=== PATIENT | male | born 1965 | race Caucasian/White ===

== ENCOUNTER 2017-02-01 01:14 | Inpatient (IN) | payer OTHER ==
[~2017-02-01] VITALS: Ht 190.5 cm; Wt 95.3 kg
[2017-02-01] VITALS (8 sets, daily range): BP systolic 122–170; BP diastolic 70–98
[~2017-02-01 01:14] MED LIST: BENTYL10 MG PO; EPIPEN 2-PAK1 MG/ML IM; PREDNISONE 20MG20 MG PO; XANAX1 M1 PO; ZOFRAN ODT4 MG SL
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
[2017-02-01 01:38] LABS: ABSOLUTE BASOPHIL COUNT 0 /CUMM (0.0-0.2); ABSOLUTE EOSINOPHIL COUNT 0.2 /CUMM (0.0-0.7); ABSOLUTE GRANULOCYTE CT 4.1 /CUMM (1.4-6.5); ABSOLUTE LYMPH COUNT 2.8 /CUMM (1.2-3.4); ABSOLUTE MONOCYTE COUNT 0.6 /CUMM (0.10-0.60); BASOPHIL % 0.5 % (0.0-2.0); EOSINOPHIL % 2.6 % (0-5); GRANULOCYTE % 52.6 % (42.2-75.2); HEMATOCRIT 41.5 % (42-52); MEAN CORPUSCULAR HGB 33.4 PG (27.0-31.0); MEAN CORPUSCULAR HGB CONC 35.2 G/DL (33.0-37.0); MEAN CORPUSCULAR VOLUME 94.8 FL (80.0-94.0); MEAN PLATELET VOLUME 7.8 FL (7.4-10.4); PLATELET COUNT 186 /CUMM (130-400); RBC DISTRIBUTION WIDTH 13.4 % (11.5-14.5); RED BLOOD CELL CT 4.38 /CUMM (4.70-6.10); WHITE BLOOD CELL COUNT 7.7 /CUMM (4.8-10.8)
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
--- NOTE | 2017-02-01 02:15 | CT SCAN REPORT ---
EXAMINATION: CT HEAD WITHOUT CONTRAST CLINICAL INFORMATION: Syncope. Fall. COMPARISON: None TECHNIQUE: Contiguous axial imaging was performed from the skull base to vertex without intravenous administration of contrast. DLP: 529.16 mGy-cm FINDINGS: There is no evidence of acute intracranial hemorrhage or territorial infarction. No abnormal mass effect or midline shift is seen. Yip to white matter differentiation is well preserved. No extra-axial fluid collections are identified. The ventricles are normal in size. There is no abnormal attenuation within the brain parenchyma. The osseous structures and soft tissues are normal. The mastoid air cells and visualized portions of the paranasal sinuses are well aerated. IMPRESSION: No acute intracranial pathology.
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
--- NOTE | 2017-02-01 03:06 | NUR ---
URINE TRIO OBTAINED AND SENT TO LAB
--- NOTE | 2017-02-01 03:28 | NUR ---
PT'S FAMILY REPORTED TO THIS RN THAT PT HAS NOT TAKEN HIS PRESCRIBED XANAX SINCE MONDAY NIGHT. ROSALINDA INFUSING. AWARE. NO S/S SEIZURE ACTIVITY AT THIS TIME, SEIZURE PADS IN PLACE.
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
--- NOTE | 2017-02-01 03:43 | NUR ---
PT'S AND SON LEAVING AT THIS TIME. PT'S , JANUARY, CAN BE REACHED AT [phone]
--- NOTE | 2017-02-01 03:58 | NUR ---
HOUSE STAFF AT BEDSIDE FOR EVAL
[2017-02-01] MEDS ORDERED: ZOLOFT100 M1 PO (04:49)
[2017-02-01] MEDS ORDERED: MINIPRESS2 M1 PO (04:50)
--- NOTE | 2017-02-01 05:06 | NUR ---
SLEEPING SOUNDLY, AROUSABLE TO VERBAL STIMULI. VSS. NO S/S OF SEIZURE ACTIVITY.
--- NOTE | 2017-02-01 05:12 | NUR ---
REPORT TO VIPUL MONGE ON [facility].
--- NOTE | 2017-02-01 06:09 | Admission Certification ---
Admission Certification Certification Statement - As attending physician, I certify that at the time of - admission, based on clinical presentation, severity of - symptoms, need for further diagnostic testing and - therapeutic interventions, and risk of adverse outcomes - without in-hospital treatment, in my clinical assessment, - this patient requires an acute hospital stay for a minimum - of two nights or longer. I have also considered psychsocial - factors such as support system, advanced age, financial - issues, cognitive issues, and failed out-patient treatments, - past re-admission history, safety of patient, and lack of - compliance as applicable. Specific rationale supporting this admission is: Syncope, seizure.
[2017-02-01] MEDS ORDERED: EPIPEN0.3 MG/0.1 IM (07:46)
[2017-02-01 08:37] LABS: ABSOLUTE BASOPHIL COUNT 0 /CUMM (0.0-0.2); ABSOLUTE EOSINOPHIL COUNT 0.1 /CUMM (0.0-0.7); ABSOLUTE GRANULOCYTE CT 4.9 /CUMM (1.4-6.5); ABSOLUTE LYMPH COUNT 1.9 /CUMM (1.2-3.4); ABSOLUTE MONOCYTE COUNT 0.5 /CUMM (0.10-0.60); BASOPHIL % 0.3 % (0.0-2.0); EOSINOPHIL % 1.1 % (0-5); GRANULOCYTE % 66.4 % (42.2-75.2); MEAN CORPUSCULAR HGB 32.8 PG (27.0-31.0); MEAN CORPUSCULAR HGB CONC 33.5 G/DL (33.0-37.0); MEAN CORPUSCULAR VOLUME 97.8 FL (80.0-94.0); MEAN PLATELET VOLUME 8.2 FL (7.4-10.4); PLATELET COUNT 176 /CUMM (130-400); RBC DISTRIBUTION WIDTH 13.3 % (11.5-14.5); RED BLOOD CELL CT 4.09 /CUMM (4.70-6.10); WHITE BLOOD CELL COUNT 7.3 /CUMM (4.8-10.8)
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
--- NOTE | 2017-02-01 10:30 | NUR ---
CALLED TO PATIENT'S ROOM BY FAMILY. PATIENT HAD GONE TO THE BATHROOM AND CAME BACK TO BED. PATIENT LYING ON LEFT SIDE UNRESPONSIVE. PATIENT APPEARS TO BE HAVING GROSS TREMORS AND JERKY MOVEMENTS. HE IS NOT RESPONDING TO NAME. FAMILY AT BEDSIDE. RAPID RESPONSE CALLED. PATIENT GIVEN IV ATIVAN 2MG. VITAL SIGN ASSESS. BP 126/80 HR 60. FINGERSTICK 126. PATIENT SLOWLY GAINED CONSCIOUSNESS BUT CONTINUES TO HAVE FINE TREMORS. NEUROLOGIST CALLED. PATIENT AWAITS EEG TODAY.
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
--- NOTE | 2017-02-01 12:50 | NUR ---
PATIENT HAD TWO SMALL EPISODES OF UNRESPONSIVENESS LASTING ABOUT 15SEC EACH. DR UNDERWOOD AT BEDSIDE. DR RODRIGUEZ NEUROLOGIST CALLED AND IS ALSO AT PATIENT'S BEDSIDE. FINE TREMORS NOTED. NO NEW INTERVENTIONS ORDERED. AWAITS EEG.
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
[2017-02-02 08:00] VITALS: BP 150/98
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
--- NOTE | 2017-02-02 08:20 | Patient Discharge Instructions ---
Discharge Instructions General Discharge Information You were seen/treated for: ? Syncope Special Instructions: 1. Follow-up with your primary care physician in a week upon discharge 2. Follow-up with neurology for further evaluation of questionable seizures 2. Follow with cardiology for further outpatient stress test workup and a Holter monitoring Diet Recommended Diet: Regular Activity Full Activity/No Limits: No Acute Coronary Syndrome Inclusion Criteria At DC or during hospital stay patient has or had the following: ACS DIAGNOSIS No Discharge Core Measures Meds if any: Prescribed or Continued at Discharge Meds if any: NOT Prescribed or Continued at Discharge Congestive Heart Failure Inclusion Criteria At DC or during hospital stay patient has or had the following: CHF DIAGNOSIS No Discharge Core Measures Meds if any: Prescribed or Continued at Discharge Meds if any: NOT Prescribed or Continued at Discharge Cerebrovascular accident Inclusion Criteria At DC or during hospital stay patient has or had the following: CVA/TIA Diagnosis No Discharge Core Measures Meds if any: Prescribed or Continued at Discharge Meds if any: NOT Prescribed or Continued at Discharge Venous thromboembolism Inclusion Criteria VTE Diagnosis No VTE Type NONE VTE Confirmed by (Test) NONE Discharge Core Measures - Per Current guidelines, there needs to be overlap - treatment for the first 5 days of Warfarin therapy. - If discharged on Warfarin prior to 5 days of - overlap therapy, the patient will need to be - assessed for post discharge needs including - *Post discharge parental anticoagulation - *Warfarin and/or parental anticoagulation education - *Follow up date to check INR post discharge At least 5 days overlap therapy as Inpatient No Meds if any: Prescribed or Continued at Discharge Note: Overlap Therapy is Warfarin and Anticoagulant Meds if any: NOT Prescribed or Continued at Discharge
--- NOTE | 2017-02-02 08:48 | ECHOCARDIOGRAM REPORT ---
DAMIEN TESFAYE Age: 51 : 1965 Gender: M Exam Date: 02/01/2017 11:33 Exam Location: 1 [address] Ht (in): 75 Wt (lb): 210 BSA: 2.25 BP: 132 / 70 Ordering Physician: Leo Camarillo Referring Physician: LEO CAMARILLO MD Technologist: Naveed Grayson Room Number: Indications: PRESYNCOPE/SYNCOPE Rhythm: Sinus Technical Quality: Fair FINDINGS Left Ventricle Left ventricular cavity size at the upper limits of normal. Borderline normal left ventricular ejection fraction estimated at 50-55%. Right Ventricle Normal right ventricular size and function. Right Atrium Normal right atrial size. Left Atrium Mild left atrial dilatation. Mitral Valve Mitral valve thickened. Trace mitral regurgitation. Aortic Valve Trileaflet aortic valve. Focal thickening of the aortic valve cusps. No aortic stenosis. No aortic regurgitation. Tricuspid Valve Tricuspid valve not well visualized, grossly normal. Trace to mild tricuspid regurgitation. Pulmonic Valve Structurally normal pulmonic valve. Pericardium No pericardial effusion. Great Vessels Normal size aortic root and proximal ascending aorta. CONCLUSIONS 1. Minimal aortic sclerosis is present with no valvular stenosis or insufficiency. 2. Mitral leaflet thickening is present with minimal mitral insufficiency and mild left atrial enlargement. 3. A physiologic pericardial effusion is present 4. The left ventricular chamber size is upper normal with an ejection fraction of approximately 55% and no visible resting wall motiion abnormalities. 5. Minimal to mild tricuspid insufficiency is present with no evidence of pulmonary hypertension. Rogelio Hickman M.D. (Electronically Signed) Final Date: 02 February 2017 08:47 MEASUREMENTS (Male / Female) Normal Values 2D ECHO LV Diastolic Diameter PLAX 5.7 cm 4.2 - 5.9 / 3.9 - 5.3 cm LV Systolic Diameter PLAX 4.9 cm 2.1 - 4.0 cm LV Fractional Shortening PLAX 14.0 % 25 - 46 % LV Ejection Fraction 2D Teich 29.5 % IVS Diastolic Thickness 0.7 cm IVS Systolic Thickness 2.0 cm LVPW Diastolic Thickness 0.9 cm LV Relative Wall Thickness 0.3 RV Internal Dim ED PLAX 3.8 cm 1.9 - 3.8 cm LVOT Diameter 2.6 cm Aortic Root Diameter 3.8 cm LA Systolic Diameter LX 2.7 cm 3.0 - 4.0 / 2.7 - 3.8 cm LA Volume 47.0 cm 18 - 58 / 22 - 52 cm DOPPLER AV Peak Velocity 101.0 cm/s AV Peak Gradient 4.1 mmHg AV Mean Velocity 70.7 cm/s AV Mean Gradient 2.0 mmHg AV Velocity Time Integral 20.1 cm LVOT Peak Velocity 88.7 cm/s LVOT Peak Gradient 3.1 mmHg LVOT Mean Velocity 56.9 cm/s LVOT Mean Gradient 2.0 mmHg LVOT Velocity Time Integral 17.7 cm LVOT Stroke Volume 94.0 cm AV Area Cont Eq vti 4.7 cm AV Area Cont Eq pk 4.7 cm MV Peak Velocity 60.4 cm/s MV Peak Gradient 1.5 mmHg MV Mean Velocity 34.6 cm/s MV Mean Gradient 1.0 mmHg Mitral E Point Velocity 64.2 cm/s Mitral A Point Velocity 47.4 cm/s Mitral E to A Ratio 1.4 MV PHT Velocity 59.2 cm/s MV Deceleration [place] 116.0 cm/s MV Pressure Half Time 153.1 ms MV Area PHT 1.4 cm MV Deceleration Time 345.0 ms TR Peak Velocity 262.0 cm/s TR Peak Gradient 27.5 mmHg Right Atrial Pressure 5.0 mmHg Pulmonary Artery Systolic Pressu 32.5 mmHg Right Ventricular Systolic Press 32.5 mmHg PV Peak Velocity 112.0 cm/s PV Peak Gradient 5.0 mmHg PV Mean Velocity 84.6 cm/s PV Mean Gradient 3.0 mmHg PV Velocity Time Integral 24.4 cm LV E' Lateral Velocity 7.9 cm/s Mitral E to LV E' Lateral Ratio 8.1 LV E' Septal Velocity 8.1 cm/s Mitral E to LV E' Septal Ratio 7.9
[2017-02-02 09:00] VITALS: BP 150/98
[2017-02-02 10:00] VITALS: BP 150/98
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
[2017-02-02] MEDS ORDERED: ATIVAN1 M1 PO (13:20)
[2017-02-02] MEDS ORDERED: KEPPRA500 M1 PO ×2 (13:21→15:22)
--- NOTE | 2017-02-02 14:26 | ELECTROENCEPHALOGRAM REPORT ---
Electroencephalogram Report Electroencephalogram Results Date of service: 02/02/17 Attending MD: ROMERO GUTIERREZ MD Cafeteria Monitor: Maya Laguerre EEG Number: [id number] Test Utilizes: 10-20 system, 21 lead 18 channel digital recording Pertinent Hx/Physical/Neuro Findings/Clin Diagnosis: Tremor. Rule out seizure Inpatient Medications: Current Medications Sig/Dea Start time Last Medication Dose Route Stop Time Status Admin Acetaminophen 500 MG Q6P PRN / 0415 AC PO Heparin Sodium 5,000 UNIT Q8 02/01 0600 AC 02/01 (Porcine) SC 1433 Ibuprofen 400 MG Q6P PRN / 0415 AC 04/ PO 1315 Levetiracetam 500 MG BID 02/01 1000 AC / PO 0941 Lorazepam 2 MG Q8 02/02 1400 AC / PO 1315 Lorazepam 2 MG Q6 / 1200 DC / PO 0633 Lorazepam 0 Q1P PRN 02/01 1045 AC 02/01 IV 1042 Nicotine 14 MG DAILY 02/01 1000 AC 02/02 TOP 0941 Oxycodone/ 2 TAB Q6P PRN / 0415 AC / Acetaminophen PO 0822 Patient Medication 1 ED .STK-MED ONE 02/02 1345 DC Teaching ED 02/02 1346 Interpretation: The predominant posterior background rhythm consists of low voltage 10-12 cps activity. Large amounts of lower voltage 18-22 cps activity is seen throughout the tracing, accentuated anteriorly. With drowsiness, there is generalized slowing of the background rhythm. No focal, paroxysmal or lateralizing features were identified. With episodes of tremor or twitching, as reported by the pathology technician, there is no associated epileptiform activity noted. Hyperventilation was deferred. Photic stimulation induced no abnormalities. Impression: This was a low-voltage tracing which was otherwise within normal limits in the states of wakefulness, drowsiness and light sleep. There are no epileptiform or paroxysmal features
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
[2017-02-02] MEDS ORDERED: PERCOCET 5-3251 EACH PO (15:09)
--- NOTE | 2017-02-02 15:47 | Event Note ---
Event Note Event Note: Patient will be discharged on Keppra 500 twice a day. Even though EEG is negative it is not confirmatory that he did not have a seizure. As per attending's recommendation we will discharge him on Keppra and he should follow- up with neurologist as an outpatient.
== END 2017-02-02 15:32 | DRG 101 ==
LOC: ENRESERVTM → ENRESERVDT → ERH 01:14 → ENPENDDIS 03:05 → 1NO 03:05 → ERHI 03:05 → 1NO 05:36
PROVIDERS: Emergency Medicine; Internal Medicine Hematology & Oncology; ADMIT Student in an Organized Health Care Education/Training Program
DX: R56.9 Unspecified convulsions (principal); E87.1 Hypo-osmolality and hyponatremia; F13.20 Sedative, hypnotic or anxiolytic dependence, uncomplicated; I10 Essential (primary) hypertension; R55 Syncope and collapse; F41.9 Anxiety disorder, unspecified; F32.9 Major depressive disorder, single episode, unspecified; F17.200 Nicotine dependence, unspecified, uncomplicated; F10.20 Alcohol dependence, uncomplicated
CPT/HCPCS: 1NP; 36415; 80307; 82436; 93005; 93010; 93306; 94799; 95816; 96374; 96375; 99232; G0480; J1644; J1953

== ENCOUNTER 2017-05-02 15:55 | Inpatient (IN) | payer OTHER ==
[~2017-05-02] VITALS: Ht 190.5 cm; Wt 102.1 kg
[~2017-05-02 15:55] MED LIST changes: +ATIVAN1 M1 PO; +EPIPEN0.3 MG/0.1 IM; +KEPPRA500 M1 PO; +MINIPRESS2 M1 PO; +PERCOCET 5-3251 EACH PO; +ZOLOFT100 M1 PO
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
--- NOTE | 2017-05-02 15:55 | NUR ---
SECURITY AT BEDSIDE FOR WANDING PT CHANGED INTO BLUE SCRUBS
--- NOTE | 2017-05-02 16:00 | NUR ---
RACHEL GARDNER AT BEDSIDE FOR EVAL
--- NOTE | 2017-05-02 16:22 | ED PSYCHIATRIC COMPLAINT ---
History of Present Illness General Chief Complaint: Psychiatric Related Complaint Stated Complaint: BIBA FOR SI/ETOH Source: patient Exam Limitations: intoxication Allergies Coded Allergies: bee venom protein (honey bee) (Severe, ANAPHYLAXIS 02/01/17) Reconcile Medications Clonazepam 1 MG TABLET 1 TAB PO BIDP PRN PTSD (Reported) Epinephrine (Epipen) 0.3 MG/0.3 ML AUTO.INJCT 1 INJ IM DAILY AC PRN BEE STINGS (Reported) Prazosin HCl 2 MG CAPSULE 1 CAP PO QPM PTSD (Reported) Sertraline HCl (Zoloft) 100 MG TABLET 1 TAB PO DAILY PTSD (Reported) Triage Note: PT SIGRID ON PEER FROM HOME FOR +SI AND ETOH. PER EMS, PT CUT HIS LEFT WRIST WITH AN UNKNOWN OBJECT AND BLEEDING CONTROLLED WITH PRESSURE DRESSING EN ROUTE. PT ARRIVED HANDCUFFED WITH 2 POLICE OFFICERS ACCOMPANYING EMS. PT DENIES SI/HI. PT REPORTS 2 VODKA NIPS TODAY AND MARIJUANA USE Triage Nurses Notes Reviewed? yes Unable To Obtain Hx Due To: patient intoxication HPI: 51-year-old male SIGRID presents to emergency room with laceration to left anterior wrist. The patient states that he is unsure of how he cut wound to left wrist. He had 2 nips of liquor and smokes marijuana. He also smokes about 1 pack of cigarettes per day. Complaining of left ankle pain, he is unsure of how he hurt his ankle. He is able to ambulate on his own. He denies recent illness, chest pain abdominal pain, dyspnea, numbness, tingling. He denies SI, HI,AH/VH. EMS reports +SI. Patient states he has a history of PTSD and see his psychiatrist across the street. (JJ SULLIVAN,LISA) Vital Signs & Intake/Output Vital Signs & Intake/Output Vital Signs Date Time Temp Pulse Resp B/P B/P Pulse O2 O2 Flow FiO2 Mean Ox Delivery Rate 05/07 1530 70 130/70 05/07 1512 70 130/70 05/07 1225 59 117/66 05/07 1219 59 117/66 05/07 0836 63 125/75 05/07 0832 97.3 63 125/75 05/06 2155 98.5 62 20 149/92 05/06 2059 98.5 62 149/92 05/06 2056 98.5 62 149/92 05/06 1626 61 146/72 05/06 1626 76 126/70 05/06 1625 96.9 60 135/73 Past History Travel History Traveled to [place] past 21 day No Medical History Any Pertinent Medical History? see below for history Neurological: NONE EENT: NONE Cardiovascular: hypertension, HIGH CHOLESTEROL Respiratory: NONE Gastrointestinal: NONE Hepatic: NONE Renal: NONE Musculoskeletal: NONE Psychiatric: PTSD history of substance abuse, in partial remission Endocrine: NONE Blood Disorders: NONE Cancer(s): NONE BILLING ASSOCIATE/Reproductive: NONE History of MRSA: No History of VRE: No History of CDIFF: No Surgical History Surgical History: non-contributory Psychosocial History Who do you live with Significant Other Services at Home None What is your primary language Namibian Tobacco Use: Refused to answer ETOH Use: occasional use Illicit Drug Use: marijuana Family History Family History, If Any: SISTER FH: HTN (hypertension) MOTHER FH: HTN (hypertension) FH: myocardial infarction Hx Contributory? No (LISA GARDNER PA-C) Review of Systems Review of Systems Constitutional: Reports: no symptoms. EENTM: Reports: no symptoms. Respiratory: Reports: no symptoms. Cardiovascular: Reports: no symptoms. GI: Reports: no symptoms. Genitourinary: Reports: no symptoms. Musculoskeletal: Reports: see HPI. Skin: Reports: see HPI. Neurological/Psychological: Reports: see HPI. Hematologic/Endocrine: Reports: no symptoms. Immunologic/Allergic: Reports: no symptoms. All Other Systems: Reviewed and Negative (LISA GARDNER PA-C) Physical Exam Physical Exam General Appearance: well developed/nourished, alert, awake, mild distress, intoxicated Head: atraumatic, normal appearance Eyes: Bilateral: normal appearance, EOMI. Ears, Nose, Throat: hearing grossly normal Neck: normal inspection, supple, full range of motion Respiratory: no respiratory distress Cardiovascular: regular rate/rhythm Extremities: normal range of motion, mild swelling of lateral left ankle, FROM, mild tenderness of lateral ankle, patient walking normally without limp, 4cm laeration to left anterior wrist Neurological/Psychiatric: awake, agitated (mildly), alert Appearance/Memory/Insight: denies illness, impaired insight Behavoir/Eye Contact/Speech: belligerent (at times), uncooperative (at times), refused to answer (some of questions) Thoughts/Hallucinations: no apparent hallucination Skin: 4 cm laceration to left anterior wrist SAD PERSONS Done? unobtained due to conditi (LISA GARDNER PA-C) Progress Differential Diagnosis: drug intoxication, drug overdose, drug withdrawal, encephalitis, hypoglycemia Hand-Off Endorsed To: ALEXANDER RODRIGUEZ MD Endorsed Time: 209 Pending: other (crisis eval) Comments: Pending crisis eval (LISA GARDNER PA-C) Hand-Off Endorsed To: HIEU TORRES,CAROLA Snell Endorsed Time: 699 Pending: consult (CRISIS) (ALEXANDER RODRIGUEZ MD) Plan of Care: Orders Procedure Date/time Status MISSING MEDICATION FORM 05/06 UNK Active Current Medications Sig/Dea Start time Last Medication Dose Stop Time Status Admin Trazodone HCl 100 MG AT BEDTIME 05/07 2200 AC (Desyrel) Sertraline HCl 150 MG 1000 05/05 1000 AC 05/07 (Zoloft) 0815 Prazosin HCl 5 MG 05/04 AC 05/06 (Minipress 5 MG) 2155 Nicotine 14 MG 1000 05/04 114 AC 05/07 (Nicotine Cq) 0815 Nicotine 2 MG Q2 HRS NEEDED PRN 05/04 1145 AC 05/06 (Nicotine) 1949 Clonazepam 1 MG AT BEDTIME NEED.. 05/04 1115 AC 05/06 (Klonopin 1MG Tab) 05/11 1114 2154 Multivitamins 1 TAB 0805/04 0800 AC 05/07 (Theragran Vitamins) 0815 Ibuprofen 800 MG Q6P PRN 05/03 2030 AC 05/07 (Motrin) 1344 Gabapentin 300 MG Q4P PRN 05/03 1845 AC 05/07 (Neurontin) 1344 Lorazepam 1 MG Q2P PRN 05/03 1845 AC (Ativan) Lorazepam 1.5 MG Q2P PRN 05/03 1845 AC (Ativan) Quetiapine Fumarate 25 MG Q4P PRN 05/03 1845 AC 05/03 (Seroquel) 2230 Laceration closed with suturing, patient tolerated procedure well. Patient was sedated with Benadryl, Haldol, Ativan prior to suturing as he was urinating on cooperatively. Patient initially stated that he was refusing all lab work however after further discussion that he would not be able to leave given his prior +SI he consented to blood work and urinalysis. Labs reveal cannabis abuse with mild macrocytic anemia. Patient seen sleeping, in no acute distress, noncombative. 2:09 - patient signed out to Dr. Rodriguez pending crisis eval/placement (LISA GARDNER PA-C) Comments: PEC has been signed and the patient will be admitted to Inpatient Psychiatry. (HIEU TORRES,CAROLA Snell) Departure Departure Disposition: STILL A PATIENT Condition: Stable Referrals: MARGARET TORRES,OLIVE Snell (PCP/Family) Departure Forms: Customer Survey General Discharge Information (LISA GARDNER PA-C) PA/PROOF LOAD MECHANIC Co-Sign Statement Statement: ED Attending supervision documentation- [] I saw and evaluated the patient. I have also reviewed all the pertinent lab results and diagnostic results. I agree with the findings and the plan of care as documented in the PA's/PROOF LOAD MECHANIC's documentation. [X] I have reviewed the ED Record and agree with the PA's/PROOF LOAD MECHANIC's documentation. [] Additions or exceptions (if any) to the PAs/PROOF LOAD MECHANIC's note and plan are summarized below: [] (BRENDA TORRES,ALEXANDER) Departure Clinical Impression Primary Impression: Suicidal ideation Secondary Impressions: Alcohol intoxication Qualifiers: Complication of substance-induced condition: uncomplicated Qualified Code: F10.920 - Alcohol use, unspecified with intoxication, uncomplicated Closed fracture of left distal fibula Qualifiers: Encounter type: initial encounter Fracture morphology: unspecified fracture morphology Qualified Code: S82.832A - Other fracture of upper and lower end of left fibula, initial encounter for closed fracture Psych Admission Note Psychiatric Admission: I have seen and evaluated DAMIEN TESFAYE. I have also reviewed all the pertinent lab results and diagnostic results. DAMIEN TESFAYE will be admitted to our inpatient Psychiatric unit for treatment and care. PA/PROOF LOAD MECHANIC Co-Sign Statement Statement: ED Attending supervision documentation- [X] I saw and evaluated the patient. I have also reviewed all the pertinent lab results and diagnostic results. I agree with the findings and the plan of care as documented in the PA's/PROOF LOAD MECHANIC's documentation. [X] I have reviewed the ED Record and agree with the PA's/PROOF LOAD MECHANIC's documentation. [] Additions or exceptions (if any) to the PAs/PROOF LOAD MECHANIC's note and plan are summarized below: [] (HIEU TORRES,CAROLA Snell) Procedures Laceration/Wound Repair Laceration/Wound Repair: Wound Location: LEFT ANTERIOR WRIST Wound's Depth, Shape: linear, superficial Wound Length (cm): 5 Wound Explored: irrigated extensively Irrigated w/ Saline (ccs): 500 Betadine Prep? Yes Anesthesia: lidocaine w/ epi Volume Anesthetic (ccs): 7 Wound Repaired With: sutures Suture Size/Type: 4:0, proline Number of Sutures: 12 Layer Closure? No Sterile Dressing Applied: Yes Progress: Patient tolerated procedure well (LISA GARDNER PA-C) Splinting Location: LEFT ANKLE Manual Alignment Performed: No Hand-Made Type: orthoglass Splint: posterior walking Splint Applied By: splint applied by me Pre-Proc Neuro Vasc Exam: normal Post-Proc Neuro Vasc Exam: normal (HIEU TORRES,CAROLA Snell)
--- NOTE | 2017-05-02 16:30 | NUR ---
MED REC COMPLETED WITH PT. PT RIPPED 4X4 OFF LEFT WRIST AND SAID "WHEN ARE THEY GOING TO SEW ME UP SO I CAN GET OUT OF HERE?" SITTER AT DOOR.
[2017-05-02] MEDS ORDERED: CLONAZEPAM1 M2 PO (16:32)
[2017-05-02] MEDS ORDERED: PRAZOSIN HCL2 M1 PO (16:33)
--- NOTE | 2017-05-02 16:45 | NUR ---
PT MEDICATED WITH ATIVAN 2MG IM, HALDOL 5MG IM AND HALDOL 5MG IM TO LEFT DELTOID. PT UNDER GOOD BEHAVIORAL CONTROL. SITTER AT DOOR. SECURITY IN AREA.
--- NOTE | 2017-05-02 17:10 | NUR ---
RACHEL GARDNER AND MED STUDENT AT BEDSIDE FOR SUTURES TO PT'S LEFT WRIST
--- NOTE | 2017-05-02 17:54 | NUR ---
LABS DRAWN AND SENT (SST,LAV) PT REFUSING TO GIVE URINE SPECIMEN AT THIS TIME. SITTER AT DOOR.
--- NOTE | 2017-05-02 17:57 | NUR ---
PT PROVIDED URINE SPECIMEN AND DORETHA SANCHEZ SENT URINE TRIO TO LAB
[2017-05-02 18:03] LABS: ABSOLUTE BASOPHIL COUNT 0 /CUMM (0.0-0.2); ABSOLUTE EOSINOPHIL COUNT 0.1 /CUMM (0.0-0.7); ABSOLUTE GRANULOCYTE CT 6.4 /CUMM (1.4-6.5); ABSOLUTE LYMPH COUNT 1.6 /CUMM (1.2-3.4); ABSOLUTE MONOCYTE COUNT 0.5 /CUMM (0.10-0.60); BASOPHIL % 0.4 % (0.0-2.0); EOSINOPHIL % 1.1 % (0-5); GRANULOCYTE % 74.4 % (42.2-75.2); HEMATOCRIT 41.1 % (42-52); MEAN CORPUSCULAR HGB 33.8 PG (27.0-31.0); MEAN CORPUSCULAR HGB CONC 33.8 G/DL (33.0-37.0); MEAN CORPUSCULAR VOLUME 100.1 FL (80.0-94.0); MEAN PLATELET VOLUME 7.9 FL (7.4-10.4); PLATELET COUNT 202 /CUMM (130-400); RED BLOOD CELL CT 4.11 /CUMM (4.70-6.10); WHITE BLOOD CELL COUNT 8.7 /CUMM (4.8-10.8)
--- NOTE | 2017-05-02 18:12 | NUR ---
PT AMBULATORY TO TELEPHONE TO CALL FAMILY. PT ASKED THIS RN TO SPEAK WITH HIS SON, WHO ASKED IF HE COULD VISIT. THIS RN TOLD HIM YES, AND PT'S SON ASKED IF PT HAD CALMED DOWN AND WAS COOPERATING. PT RETURNED TO ROOM 14, AWAITING SON'S VISIT AND CRISIS EVAL. SITTER AT DOOR.
--- NOTE | 2017-05-02 19:04 | NUR ---
PT'S SON MEETING WITH CRISIS. PT AWAKE AND REQUESTING WATER. PT PROVIDED WITH BOXED LUNCH. SITTER AT DOOR.
--- NOTE | 2017-05-02 19:20 | NUR ---
ZOEY (SON) CAN BE CONTACTED UPON D/C
--- NOTE | 2017-05-02 19:20 | NUR ---
PT MAKING +HI STATEMENTS TO SON "BETTER MY WRISTS THAN YOUR MOTHER'S THROAT I BET SHE'S AT HOME RIGHT NOW TEXTING ON HER PHONE LIKE SHE ALWAYS DOES"
--- NOTE | 2017-05-02 19:35 | NUR ---
PT PROVIDED 2ND URINE SPECIMEN, THIS RN WALKED URINE TRIO TO LAB, TUBE SYSTEM IS DOWN. SITTER AT DOOR.
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
--- NOTE | 2017-05-02 20:44 | NUR ---
PT ASLEEP AT THIS TIME. RESPIRATIONS EQUALA ND UNLABORED. SITTER AT DOOR.
--- NOTE | 2017-05-02 22:35 | NUR ---
PT ASLEEP AT THIS TIME. PT'S RESPIRATIONS ARE EQUAL AND UNLABORED. SITTER AT DOOR.
--- NOTE | 2017-05-02 23:30 | NUR ---
ASSUMED CARE OF PT, PT CURRENTLY IN BED SLEEPING, CHEST RISE AND FALL NOTED, NON LABORED BREATHING NOTED.
--- NOTE | 2017-05-03 03:50 | NUR ---
PT REMAINS ASLEEP AT THIS TIME W/ RR NOTED. SITTER REMAINS IN ATTENDANCE
--- NOTE | 2017-05-03 05:22 | NUR ---
PT REMAINS ASLEEP AT THIS TIME W/RR NOTED, NAD. SITTER REMAINS IN ATTENDANCE
--- NOTE | 2017-05-03 08:19 | NUR ---
PT AWAKE, ATE ALL HIS BREAKFAST. APPEARS IN GOOD SPIRIT AND DENIES FEELING DEPRESSED AT THIS TIME. DENIES HAVING THOUGHTS OF HURTING HIMSELF. I ASKED HIM ABOUT THE DRESSING ON HIS LEFT WRIST AND HE SAID "THAT WAS NOTHING, I DIDN'T MEAN TO DO IT" . PT'S LEFT ANKLE IS SWOLLEN, ICE WAS APPLIED. RUDY GOLDEN IS MONITORING PATIENT
--- NOTE | 2017-05-03 09:16 | ED PSYCH CRISIS CONSULTATION ---
Crisis Consult Basic Assessment Date of Consult: 05/03/17 Responsible Person/Accompanied By: SonSean Insurance Authorization: Insurance #1: Insurance name: [employer] Phone number: Policy number: [id number] Group number: [id number] Authorization number: ED Provider: Patient's ED Provider: LISA GARDNER PA-C Primary Care Physician: Patient's PCP: OLIVE ROBLES MD PCP's Current Psychiatrist: Cooper Soriano MD Chief Complaint: Psychiatric Related Complaint Patient's Quote: "I don't know why I cut myself. I don't remember threatening my ." Present Illness: 51 M SIGRID from home on a PEER 05/02/17 @ 5885, after he was observed by his son, Jr. Sean, cutting his left forearm, who called 911. The patient's mother- in-law came to the house and had an argument with the patient, who left the house to go drinking. He returned home after his came home, and she told him to go upstairs to bed. She had been telling him that she wanted to file for divorce if he did not stop drinking. The patient was agitated in the ED, and medicated with Ativan 2 mg IM/Haldol 5 mg IM/Benadryl 50 mg IM, and remained in good behavioral control. The patient made a statement to the son, "Better my wrists than your mother's throat . . ." The patient has been in treatment for PTSD, Alcohol use d/o, cannabis use d/o and nicotine use d/o with Dr. Cooper Soriano, psychiatrist at [facility]. His last visit was 03/15/17; next schedule visit is three months from that date in May. 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 He reports that the family is experiencing financial stresses, and that some of the bills are not getting paid. He is concerned about losing his job. He live at home with his of 25 years, January, , and his son, Sean Coyle. Labs: Notable for urine cannabis 77.30H and serum alcohol 200H. Also, sodium 147H, chloride 109H, glucose 106. Also, RBC 4.11L, Hbg 13.9L, Hct 41.1L. Please see the lab report below. Current psychotropic medications: By Dr. Soriano Clonazepam 1 mg Take 2 tablets PO at bedtime, last filled 04/17/17 #60/30 days Prazosin 2 mg PO at bedtime, last filled 03/16/17 #60/30 days Sertraline 100 mg PO every morning, last filled 03/15/17 #30/30 days The patient reports he has been taking his medication. He reports 2-4 nips after work, and does not drink on the weekends. He reports daily cannabis use. Collateral yesterday from the patient's son, Sean. The son remains worried about the patient and hopes he is admitted to psychiatry. Please see the separate Crisis collateral note. Collateral from the patient's , January: She reports that she had been discussing divorce with the patient if he did not stop drinking. She denies concern for her safety, her children's safety, nor the patient's safety if he were to come home. She believes that he would not have cut himself or made the statement, if he were not drinking. She reports that he has been taking the Klonopin at work and then coming home and drinking. She does not believe that he was abusing Xanax when he was on that previously. Who Do You Live With? Significant Other Family/Informants Interviewed: Son, Jr. Sean, , January Allergies - Coded Allergies: bee venom protein (honey bee) (Severe, ANAPHYLAXIS 02/01/17) Current Medications - Scheduled Medications Prazosin HCl 2 MG CAPSULE 1 CAP PO QPM PTSD #60 (Reported) Entered as Reported by KERRI VOGEL on 05/02/17 1633 Sertraline HCl (Zoloft) 100 MG TABLET 1 TAB PO DAILY PTSD 30 Days (Reported) Entered as Reported by LEO CAMARILLO on 02/01/17 0449 Scheduled PRN Medications Clonazepam 1 MG TABLET 1 TAB PO BIDP PRN PTSD #60 (Reported) Entered as Reported by KERRI VOGEL on 05/02/17 1632 Epinephrine (Epipen) 0.3 MG/0.3 ML AUTO.INJCT 1 INJ IM DAILY AC PRN BEE STINGS (Reported) Entered as Reported by EDWIGE RHOADES on 02/01/17 0746 Laboratory Results: Laboratory Tests 05/02/17 1931: Urine Opiates Screen < 100.00, Methadone Screen < 40, Barbiturate Screen < 60, Ur Phencyclidine Scrn < 6.00, Amphetamines Screen < 100, U Benzodiazepines Scrn 183, Urine Cocaine Screen < 50, Urine Cannabis Screen 77.30 H 05/02/17 1750: Anion Gap 15, Estimated GFR > 60, BUN/Creatinine Ratio 19.0, Glucose 106 H, Calcium 9.4, Total Bilirubin 0.3, AST 32, ALT 36, Alkaline Phosphatase 68, Total Protein 6.6, Albumin 4.4, Globulin 2.2, Albumin/Globulin Ratio 2.0, CBC w Diff NO MAN DIFF REQ, RBC 4.11 L, MCV 100.1 H, MCH 33.8 H, RDW 14.0, MPV 7.9, Gran % 74.4, Lymphocytes % 18.8 L, Monocytes % 5.3, Eosinophils % 1.1, Basophils % 0.4, Absolute Granulocytes 6.4, Absolute Lymphocytes 1.6, Absolute Monocytes 0.5 , Absolute Eosinophils 0.1, Absolute Basophils 0, PUBS MCHC 33.8, Serum Alcohol 200.0 Past History Past Medical History Neurological: NONE EENT: NONE Cardiovascular: hypertension, HIGH CHOLESTEROL Respiratory: NONE Gastrointestinal: NONE Hepatic: NONE Renal: NONE Musculoskeletal: NONE Psychiatric: PTSD history of substance abuse, in partial remission Endocrine: NONE Blood Disorders: NONE Cancer(s): NONE CLOTH COLORS EXAMINER/Reproductive: NONE Past Surgical History Surgical History: non-contributory Psychosocial History Strengths/Capabilities: 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 He is motivated towards treatment. Physical Limitations (Interventions): 05/03/17 0950: Nursing reports that XR of left ankle shows fracture, and the patient will likely require a boot. Imaging report not available yet. 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 How much used/taken 4 nips How often 2-4 nips daily Substance Abuse Treatment Substance Abuse Treatment Past Substance Abuse [place] No Inpatient Treatment No Outpatient Treatment No Current Mental Status Mental Status Orientation: Person, Place, Situation Affect: Anxious, Constricted Speech: Evasive Neuro-vegetative: Sleep Disturbance Appearance Appearance- Dress/Hygiene: Well-groomed Behaviors Thought Process: Thought Blocking Thought Content: Thought Blocking Memory: Short term memory Insight: Poor SI/HI Risk Assessment Past Suicidal Ideation/Attempts No (Denies) Current Suicidal Ideation/Att No Past Homicidal Ideation/Att: Yes Current Homicidal Ideation/Attempts No Degree of Intent: Self Destructive/No Danger To: Others, Self Gravely Disabled: Lack of Insight, Poor Impulse Control, Poor Judgment Risk Factors: access to lethal means, history of Violence, history of suicide atmpts, substance abuse, poor impulse control, male Lethality Ratin PTSD Checklist PTSD Done? patient declined ED Management Sitter: Yes Restraints: No DSM5/PS Stressors/Medical Prob Diagnosis' (DSM 5, Stressors, Medical): F43.10 PTSD F10.10 Alcohol use disorder F12.10 Cannabis use disorder Tobacco use disorder Current GAF: 20 Departure Disposition Psych Medical Clearance Date: 05/03/17 Medically Cleared at: 0825 Time Started: 08 Time Ended: 807 Date Disposition Established: 05/03/17 Time Disposition Established: 1245 Plan for Disposition - Modality: Inpatient Psychiatry Facility: [facility] Follow-up Appt Date: 05/03/17 Rationale for Disposition: The patient had a suicide attempt by cutting his arm, fractured his left ankle, made an indirect threat to his through his son, and has been using alcohol while on prescribed clonazepam, although his psychiatrist thought his alcohol use was in remission. We feel that he is gravely disabled by his alcohol use at this time, which resulted in his suicide attempt. Type of IP Admission: [facility] Referrals MARGARET TORRES,OLIVE Snell (PCP/Family)
--- NOTE | 2017-05-03 10:09 | RADIOLOGY REPORT ---
EXAMINATION: XR ANKLE, LEFT CLINICAL INFORMATION: Pain and swelling COMPARISON: None TECHNIQUE: AP, lateral, and mortise views of the left ankle. FINDINGS: Oblique fracture distal fibula. Soft tissue swelling laterally. Cannot exclude some mild widening of the medial mortise. IMPRESSION: Oblique fracture distal fibula. Mildly distracted.
--- NOTE | 2017-05-03 11:27 | NUR ---
RECEIVED REPORT ON PT AND NOTED EATING AND DENIES ANY COMPLAINTS AT PRESENT. PER COMMUNICATIONS SENIOR ASSOCIATE HE NEEDS TO REDICUSS PT'S STATUS WITH DR. CALVERT AND WILL INFORM OF POC. PT IS CALM AND COOPERATIVE AT PRESENT
--- NOTE | 2017-05-03 12:15 | NUR ---
PT OKAY'D FOR AND SON TO COME BACK AND VISIT
--- NOTE | 2017-05-03 13:42 | Event Note ---
Event Note Event Note: 05/03/17 1335: We had made an appointment for an IOP intake at [facility] in [place] before we decided to admit the patient to inpatient psychiatry. The appointment is set for 05/11/17 at 2:30PM at [address] [place] [address] in [place], [place]. I have called and left a message for Eneida to advise her of the [facility] admission, and to ask if we should cancel that appointment; expect a return call. The patient was originally referred to [facility], since he is on prescribed benzodiazepines.
--- NOTE | 2017-05-03 14:28 | IP CRISIS DIAG ASSESS PSYCH ---
Diagnostic Assessment Basic Assessment Insurance Authorization: Insurance #1: Insurance name: [employer] Phone number: Policy number: [id number] Group number: [id number] Authorization number: [id number] for 3 days starting 05/03/17. CM will call for review on 05/05/17, the last covered day. Primary Care Physician: Patient's PCP: OLIVE ROBLES MD PCP's Patient's Quote: "I don't know why I cut myself. I don't remember threatening my ." Present Illness: 51 M SIGRID from home on a PEER 05/02/17 @ 5779, after he was observed by his son, Jr. Sean, cutting his left forearm, who called 911. The patient's mother- in-law came to the house and had an argument with the patient, who left the house to go drinking. He returned home after his came home, and she told him to go upstairs to bed. She had been telling him that she wanted to file for divorce if he did not stop drinking. The patient was agitated in the ED, and medicated with Ativan 2 mg IM/Haldol 5 mg IM/Benadryl 50 mg IM, and remained in good behavioral control. The patient made a statement to the son, "Better my wrists than your mother's throat . . ." The patient slipped on the blood in his bedroom after cutting his left arm, and fractured his left ankle. He is currently in a posterior splint, which is non weight-bearing, and cannot get wet. He will need a cast for walking. The patient has been in treatment for PTSD, Alcohol use d/o, cannabis use d/o and nicotine use d/o with Dr. Cooper Soriano, psychiatrist at [facility]. His last visit was 03/15/17; next schedule visit is three months from that date in May. 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 He reports that the family is experiencing financial stresses, and that some of the bills are not getting paid. He is concerned about losing his job. He live at home with his of 25 years, January,[phone], and his son, Sean Coyle. Labs: Notable for urine cannabis 77.30H and serum alcohol 200H. Also, sodium 147H, chloride 109H, glucose 106. Also, RBC 4.11L, Hbg 13.9L, Hct 41.1L. Please see the lab report below. Current psychotropic medications: By Dr. Soriano Clonazepam 1 mg Take 2 tablets PO at bedtime, last filled 04/17/17 #60/30 days Prazosin 2 mg PO at bedtime, last filled 03/16/17 #60/30 days Sertraline 100 mg PO every morning, last filled 03/15/17 #30/30 days The patient reports he has been taking his medication. He reports 2-4 nips after work, and does not drink on the weekends. He reports daily cannabis use. Collateral yesterday from the patient's son, Sean. The son remains worried about the patient and hopes he is admitted to psychiatry. Please see the separate Crisis collateral note. Collateral from the patient's , January: She reports that she had been discussing divorce with the patient if he did not stop drinking. She denies concern for her safety, her children's safety, nor the patient's safety if he were to come home. She believes that he would not have cut himself or made the statement, if he were not drinking. She reports that he has been taking the Klonopin at work and then coming home and drinking. She does not believe that he was abusing Xanax when he was on that previously. Patient's Address: [address] [place] [address] Other Who Do You Live With? Spouse Feel Safe Where You Live? Yes Feel Safe in Your Relationship Yes Marital Status: Do You Have Children? Yes Ages? Patient unwilling to answ Primary Language? Martiniquais Family/Informants Interviewed: SonSean Jr. , January Allergies - Coded Allergies: bee venom protein (honey bee) (Severe, ANAPHYLAXIS 02/01/17) Current Medications - Scheduled Medications Prazosin HCl 2 MG CAPSULE 1 CAP PO QPM PTSD #60 (Reported) Entered as Reported by KERRI VOGEL on 05/02/17 1633 Sertraline HCl (Zoloft) 100 MG TABLET 1 TAB PO DAILY PTSD 30 Days (Reported) Entered as Reported by LEO CAMARILLO on 02/01/17 0449 Scheduled PRN Medications Clonazepam 1 MG TABLET 1 TAB PO BIDP PRN PTSD #60 (Reported) Entered as Reported by KERRI VOGEL on 05/02/17 1632 Epinephrine (Epipen) 0.3 MG/0.3 ML AUTO.INJCT 1 INJ IM DAILY AC PRN BEE STINGS (Reported) Entered as Reported by EDWIGE RHOADES on 02/01/17 0746 Lab Results: Laboratory Tests 05/02/17 1931: Urine Opiates Screen < 100.00, Methadone Screen < 40, Barbiturate Screen < 60, Ur Phencyclidine Scrn < 6.00, Amphetamines Screen < 100, U Benzodiazepines Scrn 183, Urine Cocaine Screen < 50, Urine Cannabis Screen 77.30 H 05/02/17 1750: Anion Gap 15, Estimated GFR > 60, BUN/Creatinine Ratio 19.0, Glucose 106 H, Calcium 9.4, Total Bilirubin 0.3, AST 32, ALT 36, Alkaline Phosphatase 68, Total Protein 6.6, Albumin 4.4, Globulin 2.2, Albumin/Globulin Ratio 2.0, CBC w Diff NO MAN DIFF REQ, RBC 4.11 L, MCV 100.1 H, MCH 33.8 H, RDW 14.0, MPV 7.9, Gran % 74.4, Lymphocytes % 18.8 L, Monocytes % 5.3, Eosinophils % 1.1, Basophils % 0.4, Absolute Granulocytes 6.4, Absolute Lymphocytes 1.6, Absolute Monocytes 0.5 , Absolute Eosinophils 0.1, Absolute Basophils 0, PUBS MCHC 33.8, Serum Alcohol 200.0 Toxicology Screen Completed? Yes Results: positive Addendum Note Addendum Primary mental health diagnosis is F32.2 Major depression disorder, severe, single event. 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 He is motivated towards treatment. He is aksing for meeting list. Physical Limitations (Interventions): 05/03/17 0950: Nursing reports that XR of left ankle shows fracture, and the patient has a splint, and will require a cast. It is non weight-bearing, and cannot get wet. 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 How much used/taken 4 nips How often 2-4 nips daily Substance Abuse Treatment Substance Abuse Treatment Past Substance Abuse [place] No Inpatient Treatment No Outpatient Treatment No Education History Highest Level of Education: high school/GED (Pt not willing to participate) Current Mental Status Mental Status Orientation: Person, Place, Situation Affect: Anxious, Constricted Speech: Evasive Neuro-vegetative: Sleep Disturbance Appearance Appearance- Dress/Hygiene: Well-groomed Behaviors Thought Process: Thought Blocking Thought Content: Thought Blocking Memory: Short term memory Insight: Poor SI/HI Risk Assessment - Minimum 6mo History- Past Suicidal Ideation/Attempts No (Denies) Current Suicidal Ideation/Att No Past Homicidal Ideation/Att: Yes (Indirect threat to ) Current Homicidal Ideation/Attempts No Degree of Intent: Self Destructive/No Danger To: Others, Self Gravely Disabled: Lack of Insight, Poor Impulse Control, Poor Judgment Risk Factors: access to lethal means, history of Violence, history of suicide atmpts, substance abuse, poor impulse control, male Lethality Ratin Needs/Init [place] Plan/Goals: TBD Patient has an intake at [facility] in [place] on 05/11/17 at 2:30PM. Please advise them if the plan changes. AUDIT-C Questionnaire: AUDIT-C Questionnaire: Response Value ETOH use in the past year 4 or more per week 4 # drinks typical/day 3 or 4 1 6 or > drinks per occasion Less than monthly 1 Total 6 DSM5/PS Stressors/Medical Prob Diagnosis' (DSM 5, Stressors, Medical): F32.2 Major depressive d/o, single event, severe F43.10 PTSD F10.10 Alcohol use disorder F12.10 Cannabis use disorder Tobacco use disorder Current GAF: 20
--- NOTE | 2017-05-03 14:29 | SOCIAL WORKER SOCIAL HX PSYCH ---
Social History Basic Assessment Primary Language? Ecuadorean Allergies - Coded Allergies: bee venom protein (honey bee) (Severe, ANAPHYLAXIS 02/01/17) Current Medications - Scheduled Medications Prazosin HCl 2 MG CAPSULE 1 CAP PO QPM PTSD #60 (Reported) Entered as Reported by KERRI VOGEL on 05/02/17 1633 Sertraline HCl (Zoloft) 100 MG TABLET 1 TAB PO DAILY PTSD 30 Days (Reported) Entered as Reported by LEO CAMARILLO on 02/01/17 0449 Scheduled PRN Medications Clonazepam 1 MG TABLET 1 TAB PO BIDP PRN PTSD #60 (Reported) Entered as Reported by KERRI VOGEL on 05/02/17 1632 Epinephrine (Epipen) 0.3 MG/0.3 ML AUTO.INJCT 1 INJ IM DAILY AC PRN BEE STINGS (Reported) Entered as Reported by EDWIGE RHOADES on 02/01/17 0746 Past History Past Medical History Neurological: NONE EENT: NONE Cardiovascular: hypertension, HIGH CHOLESTEROL Respiratory: NONE Gastrointestinal: NONE Hepatic: NONE Renal: NONE Musculoskeletal: NONE Psychiatric: PTSD history of substance abuse, in partial remission Endocrine: NONE Blood Disorders: NONE Cancer(s): NONE BRANCH ASSISTANT/Reproductive: NONE Past Surgical History Surgical History: non-contributory Psychosocial History Strengths/Capabilities: 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 He is motivated towards treatment. Physical Limitations (Interventions): 05/03/17 0950: Nursing reports that XR of left ankle shows fracture, and the patient will likely require a boot. Imaging report not available yet. 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 much used/taken 4 nips How often 2-4 nips daily Substance Abuse Treatment Substance Abuse Treatment Inpatient Treatment No Outpatient Treatment No Current Mental Status Mental Status Orientation: Person, Place, Situation Affect: Anxious, Constricted Speech: Evasive Neuro-vegetative: Sleep Disturbance Appearance Appearance- Dress/Hygiene: Well-groomed Behaviors Thought Process: Thought Blocking Thought Content: Thought Blocking Memory: Short term memory Insight: Poor SI/HI Risk Assessment Past Suicidal Ideation/Attempts No (Denies) Current Suicidal Ideation/Att No Past Homicidal Ideation/Att: Yes Current Homicidal Ideation/Attempts No Degree of Intent: Self Destructive/No Danger To: Others, Self Gravely Disabled: Lack of Insight, Poor Impulse Control, Poor Judgment Lethality Ratin - Conclusion and Recommendations for treatment - and discharge planning
[2017-05-03 17:53] VITALS: BP 133/82
--- NOTE | 2017-05-03 18:22 | NUR ---
Patient admitted to [facility] from ED. Patient alert and orient to person, place, time and situation. Patient calm and cooperative. Patient currently declines SI and has contracted for safety while on the unit. Patient has left wrist wrapped with fluff and redressed with telfa and stocking to secure. Patient has left leg wrapped with gildardo wrap and splint. 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 Montesinos for f/u. Patient reports recent relapse on ETOH. Patient recent stressors include possiblity of losing job and recent request from for a divorce. Patient affect full range. Looking forward to assisting Al with mental and physical health.
--- NOTE | 2017-05-03 18:43 | PN- Orthopedic ---
Surgical Brief Attending Note Brief Attending Note: 51 year old male sustained a slip and fall on bood soaked floor after slitting his wrist in a suicide attempt earlier today. The patient has been admitted through the emergency room for management of the suicide attempt. While in the emergency room he was noted to have pain and tenderness and swelling about the left ankle. A nominally displaced oblique left ankle lateral malleolus fracture was identified on xray. The ankle was splinted with a splint before the patient was transferred from the emergency room to the psych cardenas. Orthopaedic guidance has been requested as the psychiatric cardenas policy restricts TOMAS bandages due to potential use in a suicide. The patient's ankle xrays show the fracture as described above. The ankle mortise is intact. The bone quality is quite good. There is moderate lateral soft tissue swelling noted on xray. Assessment: Left minimally displaced short oblique lateral malleolus fracture amenable to conservative nonoperative treatment. Plan: The left lower extremity splint and OTMAS wraps may be discontinued per psychiatric cardenas policy. The patient's ankle should not be casted at this time due to his ankle swelling related to the fracture. The ankle may eventually be casted once the swelling has diminished considerably (anticipated to be around 7 -10 days). In the meantime, the ankle can be protected in a tall CAM walker obtained from [employer]. Please call the surgical PA to place boot if there is any question on how to apply the boot. If no questions on how to apply the boot the PA does not need to be called. The patient should elevate the ankle on several pillows when in bed and in general try to elevate the ankle above the level of the heart where possible for the next 4-5 days to help bring down swelling. A physical therapy consult for the AM can be called for crutch and gait training - non weight bearing on the left lower extremity in the boot. The patient should recive light analgesic medication unless medically and pscyhiatrically contraindicated. Please have the patient follow up in my office on an outpatient basis roughly 1 week following his acute inpatient hospitalization. Thanke you, Hakan Johnson M.D.
[2017-05-03 19:50] VITALS: BP 153/81
[2017-05-04] VITALS (9 sets, daily range): BP systolic 113–151; BP diastolic 68–97
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
--- NOTE | 2017-05-04 11:58 | History & Physical ---
General Information and HPI MD Statement: I have seen and personally examined DAMIEN TESFAYE and documented this H& P. The patient is a 51 year old M who presented with a patient stated chief complaint of brought in by ambulance on PEER. Source of Information: patient, family Exam Limitations: unable to give history History of Present Illness: 51-year-old white male with history of PTSD followed as an outpatient and was brought in by ambulance from home on ER after cutting his left wrist intentionally after on his own blood broke his left ankle in the emergency room he was evaluated he has a fracture of the distal fibula on the left side. He was admitted to [facility] for evaluation. The incident he was drinking some alcohol while on benzodiazepines and also had some marijuana Allergies/Medications Allergies: Coded Allergies: bee venom protein (honey bee) (Severe, ANAPHYLAXIS 02/01/17) Home Med list Clonazepam 1 MG TABLET 1 TAB PO BIDP PRN PTSD (Reported) Epinephrine (Epipen) 0.3 MG/0.3 ML AUTO.INJCT 1 INJ IM DAILY AC PRN BEE STINGS (Reported) Prazosin HCl 2 MG CAPSULE 1 CAP PO QPM PTSD (Reported) Sertraline HCl (Zoloft) 100 MG TABLET 1 TAB PO DAILY PTSD (Reported) Compliance With Home Meds: UNKNOWN Past History Travel History Traveled to [facility] past 21 day No Medical History Neurological: NONE EENT: NONE Cardiovascular: hypertension, HIGH CHOLESTEROL Respiratory: NONE Gastrointestinal: NONE Hepatic: NONE Renal: NONE Musculoskeletal: NONE Psychiatric: PTSD history of substance abuse, in partial remission Endocrine: NONE Blood Disorders: NONE Cancer(s): NONE 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 Exam & Diagnostic Data Last 24 Hrs of Vital Signs/I&O Vital Signs Date Time Temp Pulse Resp B/P B/P Pulse O2 O2 Flow FiO2 Mean Ox Delivery Rate 05/04 1121 69 113/74 05/04 0845 95.8 98 130/89 05/04 0753 95.8 98 130/89 05/03 2149 74 153/81 05/03 1950 97.0 74 153/81 05/03 1753 97.3 78 133/82 0705 1409 96.6 63 20 119/55 95 Room Air Intake & Output 05/04 1600 07 0800 07 0000 Intake Total Output Total Balance Patient 225 lb Weight Physical Exam General Appearance Alert, Oriented X3, Cooperative, No Acute Distress Skin sutures on his left wrist HEENT PERRLA, EOMI, Mucous Membr. moist/pink Neck Supple, No JVD, No thryomegaly, +2 Carotid Pulse wo Bruit, No LAD Lymphatic Axillary nl, Cervical nl Cardiovascular Regular Rate, No Murmurs Lungs decreased breath sounds Abdomen Soft, No Tenderness, No Hepatospenomegaly Neurological Exam Findings: Normal Gait, Normal Speech, Strength at 5/5 X4 Ext, Normal Tone, Sensation Intact, Cranial Nerves 3-12 NL, Reflexes 2+ Cranial Nerves II through XII: Intact Extremities slight swelling of the left ankle at the site of the fracture Last 24 Hrs of Labs/Rocco: Laboratory Tests 05/02/17 1931: Urine Opiates Screen < 100.00, Methadone Screen < 40, Barbiturate Screen < 60, Ur Phencyclidine Scrn < 6.00, Amphetamines Screen < 100, U Benzodiazepines Scrn 183, Urine Cocaine Screen < 50, Urine Cannabis Screen 77.30 H 05/02/17 1750: Anion Gap 15, Estimated GFR > 60, BUN/Creatinine Ratio 19.0, Glucose 106 H, Calcium 9.4, Total Bilirubin 0.3, AST 32, ALT 36, Alkaline Phosphatase 68, Total Protein 6.6, Albumin 4.4, Globulin 2.2, Albumin/Globulin Ratio 2.0, Vitamin B12 403, Folate 7.4, TSH 0.790, Free T4 1.10, Thyroxine (T4) 6.0, CBC w Diff NO MAN DIFF REQ, RBC 4.11 L, MCV 100.1 H, MCH 33.8 H, RDW 14.0, MPV 7.9, Gran % 74.4 , Lymphocytes % 18.8 L, Monocytes % 5.3, Eosinophils % 1.1, Basophils % 0.4, Absolute Granulocytes 6.4, Absolute Lymphocytes 1.6, Absolute Monocytes 0.5, Absolute Eosinophils 0.1, Absolute Basophils 0, PUBS MCHC 33.8, Serum Alcohol 200.0 Diagnostic Data ITS Data Unobtainable at this time Assessment/Plan As Ranked By This Provider Problem List: 1. Closed fracture of left distal fibula Qualifiers Encounter type: initial encounter Fracture morphology: unspecified fracture morphology Qualified Code: S82.832A - Other fracture of upper and lower end of left fibula, initial encounter for closed fracture 2. Suicidal ideation Miscellaneous Miscellaneous Documentation Attending Case Discussed With: ENRIKE TORRES,JOSH Santacruz Primary Care Physician: OLIVE ROBLES MD Patient sees these Specialists Psychiatry and orthopedics Level of Patient Care: ENRIQUE Robin Consults Needed: Consulting Specialty: Psychiatry Consulting Physician: Dr. Zamorano Reason for Consult: suicidal intent, depression, PTSD
--- NOTE | 2017-05-04 13:49 | NUR ---
PT VISIBLE IN THE MILIEU THROUGHOUT THE DAY. HIS GOAL WAS MEET WITH THE DOCTOR AND ADJUST TO THE MILIEU. HE HAS BEEN GOING TO GROUPS AND ACTIVELY PARTICIPATING IN THEM. HIS INTERACTIONS WITH HIS PEERS HAVE BEEN POSITIVE. HE DENIES THOUGHTS OF HURTING HIMSELF WHEN ASKED.
--- NOTE | 2017-05-04 19:01 | SOCIAL WORKER PROG NOTE PSYCH ---
Social Work Progress Note Progress Note 5:55pm This newswriter met with patient. Upon inquiry about reason for current inpt admission, pt responded, "Something stupid. Alcohol." Pt stated that he was feeling overwhelmend and was not being offered support by family resulting in cutting his wrist (while under the influence of alcohol). Pt stated that he doesn't remember engaging in the self injury. He stated that he later slipped in his blood and fractured his foot. Pt reported alcohol use about three times per week of 2-4 nips each time. "If I don't drink, I'm ok, but once I do, I need more." He identified stress as a trigger for his use. Patient stated that he has been attending individual therapy with a therapist in [place] (unsure of name) for PTSD as well as medication management through OPS. He reported that he is tapering off BZD with his psychiatrist. He stated that he plans on attending AA tonight on this unit and continuing with meetings once discharged. He is also interested in [facility]. Patient identified his son and as supports and would like to include them in a family meeting. Patient identified his goal as "find out resources to use on the outside like AA." Patient signed a ANNETTA for his son who called earlier today. Patient and this newswriter contacted his son by phone and spoke with him briefly. Patient's son and will be contacted tomorrow to schedule a family meeting. Patient's visited today and introduced her to this newswriter. Both patient's and son were in agreement with scheduling a family.
--- NOTE | 2017-05-04 21:41 | NUR ---
PT IS VISIBLE ON UNIT, VERY SOCIAL WITH PEERS AND ATTENDING GROUPS. COOPERATIVE AND COMPLIANT WITH STAFF. VISITED WITH FOR PART OF THE EVENING. NO COMPLAINTS OR SI REPORTED. PT HAS A STABLE MOOD AND FULL RANGE AFFECT.
[2017-05-05] VITALS (9 sets, daily range): BP systolic 120–148; BP diastolic 62–93
--- NOTE | 2017-05-05 11:08 | CP SOUTH PROGRESS NOTE PSYCH ---
Psych (Inpt) Progress Note Progress Note Include the following elements, when applicable: Involvement in the active treatment of the patient with behavioral observations of the patient and the patient's response to the treatment. Review of the ongoing treatment process in the context of the treatment plan. Indication of how multi-disciplinary staff members are carrying out the treatment plan. Plans for future interventions and recommendations for revision of the treatment plan. Liaison with other physicians/providers. Progress Note: I discussed this patient's progress to date, current mental status, treatment process in the context of the treatment plan, and discharge planning with staff/ team in the daily morning inpatient team meeting. I also met with the patient myself in individual session. Current Medications Sig/Dea Start time Last Medication Dose Route Stop Time Status Admin Clonazepam 1 MG AT BEDTIME NEED.. 05/04 1115 AC 05/04 PO 05/11 1114 2154 Folic Acid 1 MG 00 05/04 0800 AC 05/05 PO 05/06 0801 0758 Gabapentin 300 MG Q4P PRN 05/03 1845 AC 05/04 PO 2154 Ibuprofen 800 MG .STK-MED ONE 05/04 2155 DC PO 05/04 2156 Ibuprofen 800 MG .STK-MED ONE 05/04 1538 DC PO 05/04 1539 Ibuprofen 800 MG Q6P PRN 05/03 2030 AC 05/05 PO 0717 Lorazepam 1 MG Q2P PRN / 1845 AC PO Lorazepam 1.5 MG Q2P PRN / 1845 AC PO Lorazepam 1 MG Q4P PRN 05/03 1845 DC PO Multivitamins 1 TAB 05/04 0800 AC 05/05 PO 0758 Nicotine 14 MG 1000 / 1145 AC 05/05 TOP 0759 Nicotine 2 MG Q2 HRS NEEDED PRN 05/04 1145 AC 05/04 PO 1944 Prazosin HCl 5 MG 0 05/04 2200 AC 05/04 PO 2152 Prazosin HCl 2 MG 0 05/03 2200 DC 05/03 PO 2149 Quetiapine Fumarate 25 MG Q4P PRN / 1845 AC 05/03 PO 2230 Sertraline HCl 150 MG 1000 / 1000 AC 05/05 PO 0758 Sertraline HCl 100 MG 1000 / 1000 DC 05/04 PO 0746 Thiamine HCl 100 MG 0800 05/04 0800 AC 05/05 PO 05/06 0801 0759 Vital Signs Date Time Temp Pulse Resp B/P B/P Pulse O2 O2 Flow FiO2 Mean Ox Delivery Rate 05/05 1010 70 148/93 05/05 0824 96.7 75 126/62 05/05 0815 96.7 75 126/62 05/04 2152 72 151/90 05/04 2013 97.1 72 151/90 05/04 2009 97.1 72 151/90 05/04 1623 64 133/68 05/04 1620 64 133/68 05/04 1230 69 136/97 05/04 1227 69 136/97 05/04 1121 69 113/74 A: Chart, progress notes, vital signs, labs and medication list reviewed. Vital signs within normal limits. Met with patient at 11:00AM. Patient was cooperative and in good spirits on encounter. Informed me that he slept poorly last night due to his roommate snoring loudly, despite his efforts to use earplugs, etc. Also reported anxiety/ racing thoughts last night due to having a new roommate. Placed a request to nursing staff to have his room changed. He was agreeable to recommendation to start Seroquel 50mg prn for racing thoughts/insomnia in the event symptoms recur tonight. Denied NMAs, as he claimed not to have slept. Reported having a normal appetite. Described energy level as "fine." Rated anxiety a 4-5/10 (10 being the worst). Rated depression a 0/10 (10 being the worst). 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 Denied recent flashbacks. Denied passive and active suicidal ideation, plans or intent. Stated again that self-injury was not a suicide attempt and that he does not remember acting on this. Reported that if he hadn't been drinking alcohol, this event wouldn't have happened. He is agreeable to having a family meeting with his to discuss event leading to admission/stressors outside of the hospital and discharge planning. Denied auditory and visual hallucinations, paranoid ideation. Thought process linear, goal-directed to return to work. Patient reports tolerating increases in Zoloft and Prazosin well, denies SEs. Agreeable to continue taking. Reviewed r/b/se of Seroquel, including irreversible movement disorders, metabolic syndrome, weight gain, diabetes, and hyerlipidemia. Patient verbalized understanding and agreeable to trial. Patient aware that we will use this off-label for insomnia as it may also help manage c/ o racing thoughts/anxiety. P: -cont. current medications. -start Seroquel 50mg QHS prn for racing thoughts/insomnia. -arrange family meeting miranda. -monitor on unit for safety, mood and SI.
--- NOTE | 2017-05-05 11:21 | NUR ---
PT HAS BEEN CALM AND COOPERATIVE WITH STAFF AND UNIT ROUTINE. HE DENIES ANY THOUGHTS OF SUICIDE OR SELF HARM AND HE VERBALIZES HIS CONCERNS AND FEELINGS APPROPRIATELTY IN GROUPS AND ONE TO ONE. HE IS MONITORED FOR S/S WITHDRAWAL VIA CIWA AND HAS NOT REQUIRED PRN MEDS
--- NOTE | 2017-05-05 15:03 | SOCIAL WORKER PROG NOTE PSYCH ---
Social Work Progress Note Progress Note 2:30pm Sw met with pt. Pt shared that he attended AA last night and is motivated to continue with meetings beyond discharge from [facility]. He also expressed interest in obtaining a sponsor and stated that he will continue with AA after discharge from [facility]. Pt appeared motivated to attend [facility] as part of his discharge plan. A message has been relayed to Tonya Carpio at [facility] to review patient's case and schedule an intake assessment. Patient was also in agreement of a family meeting with his son and . ANNETTA's are both signed. His son was contacted by phone with the patient and a tentative family meeting has been scheduled for 05/08/17, 3:30pm. Patient's and/or son will contact this headline writer to confirm time. Pt denied SI/HI/AH/VH. He discussed benefitting from conversations while at [facility] including groups and AA and looking forward to continued outpt treatment.
--- NOTE | 2017-05-05 15:54 | SOCIAL WORKER PROG NOTE PSYCH ---
Social Work Progress Note Progress Note 3:30pm This film writer spoke with Isadora ([phone], ext [phone]), providing clinical in request of additional inpt authorization for ongoing inpt stay: authorized 2 days end: 05/07/17 review: 05/08/17 auth number: [id number]
--- NOTE | 2017-05-05 18:26 | NUR ---
PT IS CALM, COOPERATIVE WITH STAFF AND PEERS, AND COMPLIANT WITH UNIT RULES. OFTEN IN MIL[place]U, INTERCATING WELL WITH OTHERS. MOOD IS STABLE, AFFECT APPEARS EUTHYMIC TO FULL RANGE, COMMUNICATION IS ORGANIZED AND APPEARS NORMAL IN ALL RESPECTS, AND APPETITE IS NORMAL. PT DENIES SI AT THIS TIME.
[2017-05-06] VITALS (8 sets, daily range): BP systolic 126–149; BP diastolic 70–92
--- NOTE | 2017-05-06 07:09 | NUR ---
PATIENT WAS UP TO BATHROOM TWICE, OTHERWISE SLEPT MOST OF NIGHT.
--- NOTE | 2017-05-06 14:11 | NUR ---
PT IS PRESENT WITHIN THE COMMUNITY FOR A MAJORITY OF THE DAY THUS FAR, SOCIAL WITH PEERS, MAKES NEEDS KNOWN TO STAFF, MOOD STABLE (HOWEVER IRRITABLE AT TIMES WITH LIMIT SETTING) WITH FULL RANGE AFFECT, ATTENDED PLANNING MEETING AND REPORTED + SLEEP AND GOAL WAS TO "KEEP EVERYONES MORALE UP".
--- NOTE | 2017-05-06 19:19 | NUR ---
PT HAS APPEARED "NORMAL" IN ALL RESPECTS BUT TENDS TO OVER-REPORT HOW HE IS "DIFFERENT, FINE, AND NORMAL" COMPARED TO THE OTHERS ON THE UNIT. PT WAS ADVISED TO CONSIDER HIS HONEST FEELINGS/THOUGHTS/ACTIONS AND TO PROCESS CERTAIN SITUATIONS WHERE HE COULD IMPROVE OR CHANGE. PT EXPRESSED THAT HE WOULD NOT STOP SMOKING MARIJUANA AND THAT HE DID NOT WANT TO GO TO AN IOP PROGRAM THAT REQUIRED HIM TO REMAIN ABSTINENT FROM SUBSTANCES. PT HAS APPEARED STUBBORN TO STAFFS QUESTIONING, BUT IS COMPLIANT AND RESPECTFUL. PT HAS DENIED ANY THOUGHTS OF SI AT THIS TIME.
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
[2017-05-07] VITALS (8 sets, daily range): BP systolic 117–130; BP diastolic 66–90
--- NOTE | 2017-05-07 06:16 | NUR ---
PT CARETAKING OTHERS ON THE UNIT. PT SOCIAL. PT SLEPT.
--- NOTE | 2017-05-07 12:53 | NUR ---
PT IS SOCIAL AROUND THE UNIT, NO ISSUES OR COMPLAINTS REPORTED OR OBSERVED, MOOD STABLE WITH FULL RANGE AFFECT, CALM, COOPERATIVE AND OVERALL COMPLIANT. IN PLANNING MEETING REPORTED + SLEEP AND MOOD WITH A GOAL TO RELAX AND REST THROUGHOUT THE DAY. IT WAS NOTED THAT IN FOCUS GROUP PT APPEARED TO JOKE AROUND CONSTANTLY AND LEAVE WHEN THE CONCEPT OR TOPIC BECAME OF SERIOUS NATURE.
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
--- NOTE | 2017-05-07 19:01 | NUR ---
PT HAS BEEN EXCEPTIONALLY SOCIAL ON THE UNIT WITH PEERS AND STAFF. HE HAS DISPLAYED A FULL RANGE- BRIGHT AFFECT. PT TENDS TO REDIRECT OTHERS AND DISPLAY SOME GRANDIOSITY REFERING TO HIMSELF "[facility]". PT CAN ALSO DEFLECT THE FOCUS FROM HIMSELF, EXCUSING HIMSELF FROM THE MILEU WHEN STAFF AND OTHERS INQUIRE ABOUT HIS SITUATION. PT DENIES ANY THOUGHTS OF SI AT THIS TIME.
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
[2017-05-08 08:14] VITALS: BP 114/67
[2017-05-08 08:16] VITALS: BP 114/67
--- NOTE | 2017-05-08 11:35 | CP SOUTH PROGRESS NOTE PSYCH ---
Psych (Inpt) Progress Note Progress Note Include the following elements, when applicable: Involvement in the active treatment of the patient with behavioral observations of the patient and the patient's response to the treatment. Review of the ongoing treatment process in the context of the treatment plan. Indication of how multi-disciplinary staff members are carrying out the treatment plan. Plans for future interventions and recommendations for revision of the treatment plan. Liaison with other physicians/providers. Progress Note: I discussed this patient's progress to date, current mental status, treatment process in the context of the treatment plan, and discharge planning with staff/ team in the daily morning inpatient team meeting. I also met with the patient myself in individual session. Current Medications Sig/Dea Start time Last Medication Dose Route Stop Time Status Admin Clonazepam 1 MG AT BEDTIME NEED.. 05/04 1115 AC 05/06 PO 05/11 1114 2154 Gabapentin 300 MG Q4P PRN 05/03 1845 AC 05/08 PO 1040 Ibuprofen 800 MG .STK-MED ONE 05/07 1345 DC PO 05/07 1346 Ibuprofen 800 MG Q6P PRN 05/03 2030 AC 05/08 PO 1040 Lorazepam 1 MG Q2P PRN 05/03 1845 DC PO Lorazepam 1.5 MG Q2P PRN 05/03 1845 DC PO Multivitamins 1 TAB 0800 07/ 0800 AC 05/08 PO 0814 Nicotine 14 MG 1000 05/04 1145 AC 05/08 TOP 0814 Nicotine 2 MG Q2 HRS NEEDED PRN / 1145 AC 05/07 PO 1639 Prazosin HCl 5 MG 2200 05/04 2200 AC 05/07 PO 2214 Quetiapine Fumarate 25 MG Q4P PRN 05/03 1845 AC 05/07 PO 2216 Sertraline HCl 150 MG 1000 / 1000 AC 05/08 PO 0814 Trazodone HCl 100 MG AT BEDTIME 05/07 2200 AC 05/07 PO 2219 Vital Signs Date Time Temp Pulse Resp B/P B/P Pulse O2 O2 Flow FiO2 Mean Ox Delivery Rate 05/08 0816 96.8 80 114/67 /08 0614 96.8 80 114/67 / 2214 64 125/90 / 2053 98.4 64 125/90 / 2031 98.4 64 125/90 / 1530 70 130/70 05/07 1512 70 130/70 05/07 1225 59 117/66 05/07 1219 59 117/66 A: Chart, progress notes, vital signs, labs and medication list reviewed. Vital signs within normal limits. No new lab results today. Met with patient at 11:00AM on the date of discharge. He appears up beat and in good spirits. Reports he feels "really good." States he attended the unit AA meeting last evening and received contact information from the time analysis clerk. Expressed motivation to attend AA meetings once discharged. He denies cravings or urges to use alcohol. Shows improved insight into the impact of alcohol on his life, mental and physical health, and relationships. Affect calm, full, non-labile. Eye contact appropriate. Speech normal in rate, tone and volume. He offers no complaints. Rates anxiety a 4/10 (10 being the worst). Rates depression/sadness a 0/10 (10 being the worst). Denies feeling hopeless, helpless, worthless and guilty. Denies passive and active suicidal and homicidal ideation. Identifies protective factors of his and two children. Denies auditory and visual hallucinations. Denies paranoid ideation. There is no evidence of delusional or illogical thought content. Thought process is linear, goal-directed. Reports consistently improved sleep since starting Trazodone at . States his appetite is "better," now eating three meals a day. States his energy level is normal. He reports tolerating all medications well and denied untoward medication effects. Patient reports feeling safe and ready for discharge. Met with patient, his , and son together with Marge De La Rosa LCSW, for a family meeting prior to discharge this evening. Patient's reported that the patient has no hx of impulsive acts or suicide attempts/self-injury. She related that his behavior was strongly correlated to his drinking; names alcohol as his primary problem. She and her son denied having any safety concerns surrouding the patient's discharge or discharge plan. All parties were in favor of discharge plan to follow up with and [facility], in addition to medical follow-up appointments for ortho management and suture removal. P: -discharge home this evening into the care of his and son. -all discharge prescriptions were e-prescribed to [facility] in [place], [place], today. -patient was strongly advised to abstain from all substances; he was advised to attend daily to weekly AA meetings and obtain a sponsor for support in sobriety. -f/u at [facility] for intake on 05/09/17 at 12:45PM. -f/u with Dr. Hakan Johnson on 05/11/17 at 10:15AM for outpatient orthopedic management. -f/u with Gloria Liu APRN, at [facility], on 05/12/17 at 11AM for suture removal. -patient advised that in the event of an emergency, to call 911/211/go to the nearest emergency department. Patient verbalized understanding of all instructions.
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
[2017-05-08 12:46] VITALS: BP 136/63
[2017-05-08 12:47] VITALS: BP 136/63
--- NOTE | 2017-05-08 13:57 | NUR ---
PT IS COMPLIANT AND COOPERATIVE. MOOD IS STABLE WITH A FULL RANGE OF AFFECT. PT DENIES SI AT THIS TIME, C/O PAIN IN FOOT. PT IS PRESENT IN THE COMMUNITY AND INTERACTING WELL WITH PEERS AND STAFF. PT IS ATTENDING GROUPS. VITALS ARE STABLE, APPETITE IS GOOD.
--- NOTE | 2017-05-08 14:25 | SOCIAL WORKER PROG NOTE PSYCH ---
See Addendum Social Work Progress Note Progress Note Patient has an orthopedic follow up with Hakan Johnson scheduled for , May 11, 2017 Patient also has a follow-up appointment with Dr Putnam, [facility] scheduled for May 18, 2017 at 10:40 a.m.
[2017-05-08] MEDS ORDERED: PRAZOSIN HCL5 M1 PO (15:06)
[2017-05-08] MEDS ORDERED: ONE DAILY MULT1 EAC2 PO (15:06)
[2017-05-08] MEDS ORDERED: TRAZODONE HCL100 M1 PO (15:06)
[2017-05-08] MEDS ORDERED: NICOTINE PATCH1 EAC2 TOP (15:06)
[2017-05-08] MEDS ORDERED: SERTRALINE HCL50 MG PO (15:06)
--- NOTE | 2017-05-08 15:09 | DISCHARGE SUMMARY REPORT-PSYCH ---
Visit Information Visit Dates/Diagnosis' Admission Date: 05/03/17 Discharge Date: 05/08/17 Reason for Admission: Patient made a self-inflicted laceration to his left wrist with a knife, requiring sutures, while intoxicated on alcohol. Psy Discharge Primary Diag: Unspecified depressive disorder Psy Discharge Secondary Diag: PTSD, Alcohol use disorder, Cannabis use disorder, Nicotine use disorder, Spinal stenosis, Hx of seizures, Arthritis, Bursitis, Chronic pain. Hospital Course Significant Lab Findings: Lab Chloride 109 mmol/L H 05/02/17 1750 Glucose 106 mg/dL H 05/02/17 1750 Sodium 147 mmol/L H 05/02/17 1750 Hct 41.1 % L 05/02/17 1750 Hgb 13.9 G/DL L 05/02/17 1750 Lymphocytes % 18.8 % L 05/02/17 1750 MCH 33.8 PG H 05/02/17 1750 MCV 100.1 FL H 05/02/17 1750 RBC 4.11 /CUMM L 05/02/17 1750 Serum Alcohol 200.0 MG/DL 05/02/17 1750 Urine Cannabis Screen 77.30 NG/ML H 05/02/17 1931 05/03/17 EXAMINATION: XR ANKLE, LEFT CLINICAL INFORMATION: Pain and swelling COMPARISON: None TECHNIQUE: AP, lateral, and mortise views of the left ankle. FINDINGS: Oblique fracture distal fibula. Soft tissue swelling laterally. Cannot exclude some mild widening of the medial mortise. IMPRESSION: Oblique fracture distal fibula. Mildly distracted. Course Complications: None. Consultations: Prior to CPS admission the patient was seen by orthopedic, Dr. Hakan Johnson, for a displaced oblique left ankle lateral malleolus fracture that was identified on xray in the emergency department. Patient was instructed to utilize surgical boot for ankle support and elevate his ankle when in bed to reduce swelling. Light analgesic was provided for pain management. Patient was instructed to follow-up with Dr. Johnson 1 week post-discharge from hospital. The patient was also seen by Cinthia Mcginnis PA-C, in the emergency department where he received 12 sutures in his left anterior wrist for a linear, superficial laceration. Please see her note for additional information. The patient was seen for admission history and physical by computer methods analyst, Dr. Vincent Montesinos. Please see his note for additional information. Allergies: Coded Allergies: bee venom protein (honey bee) (Severe, ANAPHYLAXIS 02/01/17) Hospital Course/TX Response: The patient was monitored on the unit for safety, mood, suicidal ideation and alcohol withdrawal. He was monitored on [facility] protocol for alcohol withdrawal and did not require an ativan taper. He did not exhibit any complications. He participated in multimodal treatments on the unit. Zoloft was increased from 100mg daily to 150mg daily for depression/anxiety. Prazosin was increased from 4mg QHS to 5mg QHS for nightmares associated with prior trauma. Clonazepam was decreased from 2mg QHS to 1mg QHS prn for anxiety. Klonopin was discontinued prior to discharge. Trazodone 100mg QHS was started for insomnia. Ibuprofen 800mg four times daily was started for ankle pain/swelling per computer methods analyst recommendation. Reviewed the risk/benefit/side effects of Ibuprofen with the patient; he was advised to reduce dosage on discharge to 400mg four times a day for ankle swelling/pain. Patient verbalized understanding of medication education and agreed to purchase over the counter. He reported tolerating all medications well and denied untoward medication effects. During the hospital course, the patient's mood and affect improved. He consistently denied suicidal and homicidal ideation; he reported daily that self -injurous act was the result of his alcohol use. A family meeting was held with his , adult son, Marge De La Rosa, CHRIS and Janett. The patient's treatment progress , medication regimen, discharge plan and level of safety were reviewed and discussed. The patient's confirmed that the patient had no prior hx of impulsive acts, suicide attempts or self-injury. She related that his behavior was strongly correlated to his drinking; she named alcohol as his primary problem. The patient's and son expressed no safety concerns surrouding the patient's discharge or discharge plan. They both verified that there is no alcohol in the home. All parties were in favor of the patient following up with AA programming and [facility] for further support in sobriety and psychiatric management. Patient and family were also informed of follow-up medical appointments for outpatient orthopedic management and suture removal. On the date of discharge, 05/08/17, the patient appeared up beat and in good spirits. He reported feeling "really good." Stated he attended the unit AA meeting last evening and received contact information from the supervisor fabrication and assembly. Expressed motivation to attend AA meetings once discharged. He denied cravings or urges to use alcohol. Showed improved insight into the impact of alcohol on his life, mental and physical health, and relationships. Affect calm, full, non-labile. Eye contact appropriate. Speech normal in rate, tone and volume. He offers no complaints. Rates anxiety a 4/10 (10 being the worst). Rates depression/sadness a 0/10 (10 being the worst). Denied feeling hopeless, helpless, worthless and guilty. Denied passive and active suicidal and homicidal ideation. Identified protective factors of his and two children. Denied auditory and visual hallucinations. Denied paranoid ideation. There was no evidence of delusional or illogical thought content. Thought process linear, goal-directed. He reported consistently improved sleep since starting Trazodone at bedtime. Stated his appetite is "better," now eating three meals a day. Stated his energy level is normal. He reported tolerating all medications well and denied untoward medication effects. Patient reported feeling safe and ready for discharge. Discharge HBIPS - Tobacco Use Treatment Offered Post DC Medications Offered: Script Given-See Med List Post DC Tobacco Treatment Plan: Refused Tobacco Tx Pgm - EtOH/Drug Use D/O Treatment Offered Post DC Medications Offered: Ref Med EtOH/Drug Use D/O Post DC EtOH/SubAbuse TX Plan: [facility] SubAbuse/Dual IOP Program Appt Date: 05/09/17 Program Appt Time: 1245 Metabolic Screening - Screen if on a Neuroleptic Medication - Metabolic screening should include: - Blood Pressure, BMI, Glucose or Hgb A1c, & a - Lipid profile from within the past 365 days. Metabolic Screening ([X]) Not Applicable, patient not on a neuroleptic. OR () Patient on a neuroleptic(s) . Enter below results for Glucose or Hemoglobin A1C, and lipid panel if obtained during the last 365 days. BMI: 28.000 Blood Pressure: 156/98 Laboratory Results (If applicable): n/a Discharge Instructions General Discharge Information Discharge Medications: Discharge Medications- (Dose, route, freq, indication): HOME MEDICATION LIST START taking these NEW Home Medications: Nicotine (Nicotine Dose: On the skin, 1000 for Qty: 14 Sent to Patch) 14 MG/24 HOUR 14 Milligram nicotine cessation Refills: 0 Pharm 1 PATCH.TD24 Apply 1 patch topically to upper arm QAM and remove before HS. Prazosin HCl Dose: ORAL, 2200 for nightmares Qty: 14 Sent to (Prazosin HCl) 5 MG 5 Milligram Take 1 cap po QHS. Refills: 0 Pharm 1 CAPSULE Sertraline HCl Dose: ORAL, DAILY for Qty: 42 Sent to (Sertraline HCl) 50 150 Milligram anxiety/depression Refills: 0 Pharm 1 MG TABLET Take 3 tabs (150mg) po daily. Trazodone HCl Dose: ORAL, AT BEDTIME for Qty: 14 Sent to (Trazodone HCl) 100 100 Milligram insomnia Refills: 0 Pharm 1 MG TABLET Take 1 tab po QHS. Multivitamin (One Dose: ORAL, DAILY @8 AM for Qty: 14 Sent to Daily Multivitamin) 1 Tablet vitamin support Refills: 0 Pharm 1 1 EACH TABLET Take 1 tab po daily. CONTINUE taking these Home Medications: Epinephrine (Epipen) 0.3 Dose: INTRAMUSC, DAILY BEFORE MG/0.3 ML AUTO.INJCT 1 Inj BREAKFAST as needed for BEE STINGS NOT GIVEN IN HOSPITAL STOP taking these DISCONTINUED Home Medications: Sertraline HCl (Zoloft) 100 MG Dose: ORAL, DAILY for PTSD TABLET 1 Tablet Reason Stopped: Changed Dose Clonazepam (Clonazepam) 1 MG Dose: ORAL, 2 x Daily as needed as TABLET 1 Tablet needed for PTSD Reason Stopped: Per Doctor Decision Prazosin HCl (Prazosin HCl) 2 Dose: ORAL, Every night for PTSD MG CAPSULE 1 Capsule Reason Stopped: Changed Dose 1: [id number], [address] [place] [id number] [id number] [address] [place] [address] Multiple Neuroleptics: ([X]) Not Applicable OR Document below three failed attempts at monotherapy, or a plan to taper to monotherapy, or augmentation of Clozapine. () Patient's Diet: Regular. Patient's Activity: As tolerated. Await clearance from othropedic medicine prior to resuming work. DC Disposition: Patient to return home to and children. Recommendations: The patient was advised to please take his medications as prescribed. He was advised to abstain from all substances; attend daily to weekly AA meetings and obtain a sponsor as soon as possible for support in sobriety. He was advised to follow up with scheduled outpatient medical appointments for orthopedic management and suture removal. He was advised to follow up at [facility] for intake. He was advised that in the event of an emergency to call [phone] /go to the nearest emergency department. The patient verbalized understanding of all instructions. Recommend encouraging the patient to trial an alcohol deterrent medication during his IOP course if he starts having cravings/urges to use alcohol. He had declined this recommendation during his inpatient stay. Referred To: Service Date: 05/09/17 Referred To: [[facility]] Notes: [address] ([phone] Intake appointment: 05/09/17, 12:45pm Provider Referral Service Date: 05/11/17 Referred To: [Hakan Johnson MD] Notes: Hakan Johnson MD [address] [place] [address] (t)[phone] Appointment: 05/11/17, 10:15am Provider Referral Service Date: 05/12/17 Referred To: [[facility]] Notes: [facility] Gloria Liu APRN [address] [place], [place] Appointment: 05/12/17, 11am Copies To: Gloria Liu APRN; [facility]; Hakan Johnson MD
[2017-05-08 15:40] VITALS: BP 156/98
[2017-05-08 15:49] VITALS: BP 156/98
--- NOTE | 2017-05-08 16:06 | NUR ---
WILL BE DISCHARGED TODAY TO [facility] [place] [facility]. MOOD IS STABLE, FULL RQANGE OF AFFECT. DENIED THOUGHTS OF SELF HARM WHEN ASKED
--- NOTE | 2017-05-08 16:10 | SOCIAL WORKER PROG NOTE PSYCH ---
Social Work Progress Note Progress Note 3:40pm Alis Driver APRN and this quality analyst/technical writer met with pt and his family ( and son). Niether pt nor family members identified any concerns about him discharging today and returning home. Pt appeared motivated to continue with IOP and outpatient providers upon discharge from [facility]. Pt also expressed intent to attend AA meetings and stated that he would utilize a contact tonight in attempt to identify a meeting that he can attend upon discharge from [facility] this afternoon. Pt will contact his outpatient therapist, Ban. He did not know her last name and therefore was unable to a sign a ANNETTA. He stated that he would bring her information to the IOP intake tomorrow in order to sign a ANNETTA at that time. Pt reviewed medication questions and concerns with Alis Driver APRN. He denied SI/HI/AH/VH. Discharge plans were reviewed with the pt and his family and are as follows: -[facility], 05/12/17, 11am -Dr. Hakan Johnson, 05/11/17, 10:15am -[facility] intake, 05/09/17, 12:45pm
--- NOTE | 2017-05-09 10:04 | SOCIAL WORKER PROG NOTE PSYCH ---
Social Work Progress Note Progress Note 10:03am This designer/writer left vm for Isadora regarding discharge as well as requesting an IOP authorization. A call back number was provided.
--- NOTE | 2017-05-10 08:58 | SOCIAL WORKER PROG NOTE PSYCH ---
See Addendum Social Work Progress Note Progress Note This commercial loan underwriter left discharge clinical for Isadora ([phone], ext [phone]) including a request for IOP authorization. A call back number for this commercial loan underwriter was also provided.
== END 2017-05-08 16:40 | DRG 881 ==
LOC: ERH 15:55 → CP SOUTH 05-03 13:35 → ERHI 05-03 13:35 → ENTRNSPT 05-03 16:51 → CMPTRNSPT 05-03 17:00 → CP SOUTH 05-03 17:32 → ENRESERV 05-03 18:00 → CP SOUTH 05-04 19:57
PROVIDERS: Physician Assistant; ADMIT Psychiatry & Neurology Addiction Medicine
DX: F32.9 Major depressive disorder, single episode, unspecified (principal); R56.9 Unspecified convulsions; F43.10 Post-traumatic stress disorder, unspecified; Z72.89 Other problems related to lifestyle; F12.90 Cannabis use, unspecified, uncomplicated; Z72.0 Tobacco use; M48.00 Spinal stenosis, site unspecified; M19.90 Unspecified osteoarthritis, unspecified site; M71.9 Bursopathy, unspecified; G89.29 Other chronic pain
CPT/HCPCS: 73610-LT; 80307; G0463; G0480; J1200; J1630; J3490

== ENCOUNTER 2018-06-09 11:45 | Emergency (ER) | payer OTHER ==
[~2018-06-09] VITALS: Ht 188 cm; Wt 108.9 kg
[~2018-06-09 11:45] MED LIST changes: +CLONAZEPAM1 M2 PO; +NICOTINE PATCH1 EAC2 TOP; +ONE DAILY MULT1 EAC2 PO; +PRAZOSIN HCL2 M1 PO; +PRAZOSIN HCL5 M1 PO; +SERTRALINE HCL50 MG PO; +TRAZODONE HCL100 M1 PO
--- NOTE | 2018-06-09 12:42 | ED GENERAL ADULT ---
History of Present Illness General Chief Complaint: General Adult Stated Complaint: "DEHYDRATED" Source: patient Exam Limitations: no limitations Vital Signs & Intake/Output Vital Signs & Intake/Output Vital Signs Date Time Temp Pulse Resp B/P B/P Pulse O2 O2 Flow FiO2 Mean Ox Delivery Rate 06/09 1450 97.0 63 18 142/92 98 Room Air 06/09 1151 96.0 100 20 160/100 96 Room Air Allergies Coded Allergies: bee venom protein (honey bee) (Severe, ANAPHYLAXIS 02/01/17) Reconcile Medications Epinephrine (Epipen) 0.3 MG/0.3 ML AUTO.INJCT 1 INJ IM DAILY AC PRN BEE STINGS (Reported) Famotidine (Pepcid) 40 MG TABLET 1 TAB PO DAILY reflux Multivitamin (One Daily Multivitamin) 1 EACH TABLET 1 TAB PO 0800 vitamin support Take 1 tab po daily. Nicotine (Nicotine Patch) 14 MG/24 HOUR PATCH.TD24 14 MG TOP 1000 nicotine cessation Apply 1 patch topically to upper arm QAM and remove before HS. Ondansetron HCl (Zofran) 4 MG TABLET 1 TAB PO Q6 PRN NAUSEA/VOMITING Prazosin HCl 5 MG CAPSULE 5 MG PO 2200 nightmares Take 1 cap po QHS. Sertraline HCl 50 MG TABLET 150 MG PO DAILY anxiety/depression Take 3 tabs (150mg) po daily. Trazodone HCl 100 MG TABLET 100 MG PO AT BEDTIME insomnia Take 1 tab po QHS. Triage Note: PT TO ED "I THINK I'M DEHYRATED". STATES HE WORKS OUTSIDE AND SWEATS A LOT. C/O HEADACHE. DENIES C/P, SOB, DIFF BREATHING. PT STATES "MY BODY IS TREMBLING". Triage Nurses Notes Reviewed? yes HPI: This is a 52-year-old male with history of untreated hypertension and hyperlipidemia, prior substance abuse, presented to the emergency department with a sensation of dehydration. 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 He states that he frequently vomits, oftentimes throwing up prior to going to work in the morning. However recently these episodes have made it difficult for him to adequately hydrate himself. He states he does not regularly follow with a doctor and is not sure why he vomits so regularly. He denies any history of intra-abdominal pathology, abdominal surgery, recent travel recent trauma or recent sick contacts. Upon arrival to the emergency department he denies any ongoing headache, lightheadedness, dizziness, neck pain , chest pain, shortness of breath, abdominal pain, nausea, vomiting, diarrhea. He has been able to tolerate food and drink, however he states that he "cannot get enough ". He is able to sweat when exerting himself, states that his symptoms are worse when he exerts himself in terms of lightheadedness. He also reports that he has had decreased urinary output, but no dysuria or urgency. He has been having regular bowel movements which are unchanged in color quality. (Sorin Aviles MD) Past History Travel History Traveled to [place] past 21 day No Medical History Any Pertinent Medical History? see below for history Neurological: NONE EENT: NONE Cardiovascular: hypertension, HIGH CHOLESTEROL Respiratory: NONE Gastrointestinal: NONE Hepatic: NONE Renal: NONE Musculoskeletal: NONE Psychiatric: PTSD history of substance abuse, in partial remission Endocrine: NONE Blood Disorders: NONE Cancer(s): NONE PRINCIPAL STRATEGIST/Reproductive: NONE History of MRSA: No History of VRE: No History of CDIFF: No Surgical History Surgical History: non-contributory Psychosocial History Who do you live with Spouse Services at Home None What is your primary language Bhutanese Tobacco Use: Current Daily Use Daily Tobacco Use Amount/Type: => 5 Cigarettes daily ETOH Use: occasional use Illicit Drug Use: denies illicit drug use Family History Family History, If Any: SISTER FH: HTN (hypertension) MOTHER FH: HTN (hypertension) FH: myocardial infarction Hx Contributory? No (Sorin Aviles MD) Review of Systems Review of Systems Constitutional: Reports: malaise, weakness. EENTM: Reports: no symptoms. Respiratory: Reports: no symptoms. Cardiovascular: Reports: no symptoms. GI: Reports: see HPI, nausea, vomiting. Genitourinary: Reports: see HPI. Musculoskeletal: Reports: no symptoms. Skin: Reports: no symptoms. Neurological/Psychological: Reports: no symptoms. Hematologic/Endocrine: Reports: no symptoms. Immunologic/Allergic: Reports: no symptoms. (Sorin Aviles MD) Physical Exam Physical Exam General Appearance: well developed/nourished, no apparent distress, alert, comfortable Head: atraumatic, normal appearance Eyes: Bilateral: normal appearance, PERRL, EOMI. Ears, Nose, Throat: normal pharynx, normal ENT inspection, hearing grossly normal Neck: normal inspection, supple, full range of motion Respiratory: normal breath sounds, chest non-tender, no respiratory distress, lungs clear Cardiovascular: regular rate/rhythm, normal peripheral pulses Gastrointestinal: normal bowel sounds, soft, non-tender Back: normal inspection, normal range of motion Extremities: normal inspection, normal range of motion, no edema Skin: intact, normal color, warm/dry Core Measures ACS in differential dx? No CVA/TIA Diagnosis: No Sepsis Present: No Sepsis Focused Exam Completed? No (Stefan TORRES,Sorin) Progress Differential Diagnoses I considered the following diagnoses in my evaluation of the patient: Dehydration secondary to exertion, low suspicion at this time for heatstroke. Mild concern for metabolic derangement or acute kidney injury given several days of decreased urinary output and inability to tolerate p.o. Low suspicion for acute obstructive process given regular bowel movements, benign abdominal exam. Low suspicion for acute cardiopulmonary process such as ACS, given lack of chest pain, shortness of breath, diaphoresis. Low suspicion for acute central neurologic process such as posterior circulation abnormality or mass-effect given lack of suggestive historical features or exam findings. Plan of Care: Orders Procedure Date/time Status Regular Diet 06/09 D Active URINALYSIS 06/09 115 Complete TROPONIN LEVEL 06/093 Complete LACTIC ACID 06/09 1153 Complete COMPREHENSIVE METABOLIC PANEL 06/09 1153 Complete CREATINE PHOSPHOKINASE 06/09 1153 Complete CBC WITHOUT DIFFERENTIAL 06/09 1153 Complete EKG 06/09 1153 Active Laboratory Tests 06/09/18 1453: Lactic Acid Cancelled 06/09/18 1440: Urine Color YEL, Urine Clarity CLEAR, Urine pH 6.0, Ur Specific [place] 1.025, Urine Protein NEG, Urine Ketones NEG, Urine Nitrite NEG, Urine Bilirubin NEG, Urine Urobilinogen 0.2, Ur Leukocyte Esterase NEG, Ur Microscopic EXAM NOT REQUIRED, Urine Hemoglobin NEG, Urine Glucose NEG 06/09/18 1232: Anion Gap 6, Estimated GFR > 60, BUN/Creatinine Ratio 18.8, Glucose 123 H, Lactic Acid 0.7, Calcium 8.9, Total Bilirubin 0.5, AST 27, ALT 36, Alkaline Phosphatase 63, Creatine Kinase 254 H, Troponin I < 0.01, Total Protein 6.6, Albumin 4.1, Globulin 2.5, Albumin/Globulin Ratio 1.6, CBC w Diff NO MAN DIFF REQ, RBC 4.03 L, MCV 97.4 H, MCH 33.2 H, MCHC 34.1, RDW 12.8, MPV 8.1, Gran % 54.8, Lymphocytes % 34.3, Monocytes % 7.8, Eosinophils % 2.5, Basophils % 0.6, Absolute Granulocytes 2.8, Absolute Lymphocytes 1.8, Absolute Monocytes 0.4, Absolute Eosinophils 0.1, Absolute Basophils 0 Plan for basic labs including lactate, troponin, CMP, CVC, EKG. Will also check chest film to address possibility of occult lower lobe pneumonia, however very low pretest probability at this time. Chest x-ray clear. Patient states that he feels much better after 2 L of IV fluid. He is able to tolerate p.o. without difficulty. Labs revealed mild macrocytic anemia, she states that this may be new for him. This be an unusual type of anemia for chronic blood loss anemia, however given recent history of recurrent vomiting, I do recommend that patient follows up with gastroenterology for possible evaluation for endoscopy or colonoscopy. In addition, I strongly recommended the patient establish care with the primary doctor. Given that he is well-appearing and eager to leave the emergency department, I think it is reasonable for the patient to take as needed Zofran and Pepcid daily for the intervening period. Patient is discharged home with his and son, return precautions provided and follow-up instructions given. Initial ED EKG: normal axis, normal intervals, normal p-waves, normal QRS complex, normal sinus rhythm (Stefan TORRES,Sorin) Departure Departure Time of Disposition: 1431 Disposition: HOME OR SELF CARE Condition: Stable Clinical Impression Primary Impression: Nausea and vomiting Secondary Impressions: Dehydration Referrals: Wild TORRES,Bebeto Snell (PCP/Family) Additional Instructions: Thank you for coming to [facility] today. As we discussed, I think it is important he follow-up with her primary doctor this week for reevaluation and possible referral to gastroenterology for assessment of recurrent vomiting. Today on new labs, we saw that you had "macrocytic anemia ", this is a common problem but will require follow-up with your primary doctor. I provided with information for a accounts payable manager named Dr. Gonzalez. I recommend that you follow-up with his office as well. Please take the Zofran as needed for nausea and take the Pepcid daily for heartburn. Please return to the emergency department if you develop worsening symptoms, are unable to eat, will have any lightheadedness , chest pain or shortness of breath or belly pain or headache. Departure Forms: Customer Survey General Discharge Information Prescriptions: Current Visit Scripts Famotidine (Pepcid) 1 TAB PO DAILY #30 TAB Ondansetron HCl (Zofran) 1 TAB PO Q6 PRN NAUSEA/VOMITING #12 TAB (Sorin Aviles MD) Resident Co-Sign Statement Statement: ED Attending supervision documentation- [] I saw and evaluated the patient. I have also reviewed all the pertinent lab results and diagnostic results. I agree with the findings and the plan of care as documented in the Resident's documentation. [X] I have reviewed the ED Record and agree with the Resident's documentation. [] Additions or exceptions (if any) to the Resident's note and plan are summarized below: [] (Mable TORRES,Armand Snell) Critical Care Note Critical Care Note Critical Care Time: non-applicable (Sorin Aviles MD)
[2018-06-09 12:45] LABS: ABSOLUTE BASOPHIL COUNT 0 /CUMM (0.0-0.2); ABSOLUTE EOSINOPHIL COUNT 0.1 /CUMM (0.0-0.7); ABSOLUTE GRANULOCYTE CT 2.8 /CUMM (1.4-6.5); ABSOLUTE LYMPH COUNT 1.8 /CUMM (1.2-3.4); ABSOLUTE MONOCYTE COUNT 0.4 /CUMM (0.10-0.60); BASOPHIL % 0.6 % (0.0-2.0); EOSINOPHIL % 2.5 % (0-5); GRANULOCYTE % 54.8 % (42.2-75.2); HEMATOCRIT 39.3 % (42-52); MEAN CORPUSCULAR HGB 33.2 PG (27.0-31.0); MEAN CORPUSCULAR HGB CONC 34.1 G/DL (33.0-37.0); MEAN CORPUSCULAR VOLUME 97.4 FL (80.0-94.0); MEAN PLATELET VOLUME 8.1 FL (7.4-10.4); PLATELET COUNT 230 /CUMM (130-400); RBC DISTRIBUTION WIDTH 12.8 % (11.5-14.5); RED BLOOD CELL CT 4.03 /CUMM (4.70-6.10); WHITE BLOOD CELL COUNT 5.1 /CUMM (4.8-10.8)
[2018-06-09] MEDS ORDERED: PEPCID40 M1 PO (13:54)
[2018-06-09] MEDS ORDERED: ZOFRAN4 M2 PO (13:54)
--- NOTE | 2018-06-09 14:29 | RADIOLOGY REPORT ---
EXAMINATION: XR CHEST CLINICAL INFORMATION: Weakness and vomiting COMPARISON: None TECHNIQUE: 2 views of the chest were obtained. FINDINGS: Heart size is normal. Mediastinal contours are normal. Lungs are clear without consolidation, effusion or pneumothorax. Visualized osseous structures appear intact. IMPRESSION: No acute cardiopulmonary process
[2018-06-09 14:50] VITALS: BP 142/92
== END 2018-06-09 15:09 ==
LOC: ERH 11:45
PROVIDERS: Physician Assistant Medical
DX: E86.0 Dehydration (principal); R11.2 Nausea with vomiting, unspecified
CPT/HCPCS: 71046; 81003; 93005; 93010; 96374; J2405